=== PATIENT | female | born 1950 | race Caucasian/White ===

== ENCOUNTER 2017-01-20 11:07 | Outpatient (CLI) ==
[2014-08-09 19:46] VITALS: BMI 30.8
--- NOTE | 2017-01-20 12:05 | MAMMO ---
EXAM: Bilateral digital screening mammogram History: Screening Comparison: Bilateral mammogram 08/01/2015 Findings: MLO and CC views of bilateral breasts demonstrate scattered fibroglandular breast parench yma. Focal asymmetry within the left subareolar breast only seen on the MLO view. No suspicious cyrus rocalcifications. Impression: Indeterminate left breast asymmetry seen only on the MLO view. Recommend further evalu ation with spot compression views, ML view and possible ultrasound. BIRADS 0
== END 2017-01-20 11:08 | disposition home or self-care (01) ==
LOC: RAD 11:07
PROVIDERS: ATTEND Internal Medicine
DX: Z12.31 Encounter for screening mammogram for malignant neoplasm of breast (principal)

== ENCOUNTER 2017-01-25 08:57 | Outpatient (CLI) ==
[2014-08-09 19:46] VITALS: BMI 30.8
--- NOTE | 2017-01-25 09:59 | MAMMO ---
EXAM: Left digital diagnostic mammogram History: Left breast asymmetry. Comparison: Bilateral mammogram 01/20/2017 Findings: Left breast density is scattered. Additional spot compression views of the left breast i n the MLO and CC projections demonstrate normal superimposed breast parenchyma. There are no suspic ious masses and no abnormal microcalcifications. Impression: Benign left mammogram. Recommend return to routine screening mammography schedule. BIRADS 2
== END 2017-01-25 08:58 | disposition home or self-care (01) ==
LOC: RAD 08:57
PROVIDERS: ATTEND Internal Medicine
DX: R92.8 Other abnormal and inconclusive findings on diagnostic imaging of breast (principal)

== ENCOUNTER 2017-11-15 06:50 | Day surgery (SDC) ==
[2014-08-09 19:46] VITALS: BMI 30.8
[2017-11-15] MEDS ORDERED: LIDOCAINE 1% 20 ML MDV ID STA (07:33)
[2017-11-15] MEDS ORDERED: DIPRIVAN 20 ML VIAL IVP ONE (08:35)
[2017-11-15] MEDS ORDERED: VERSED ONE (08:35)
[2017-11-15 14:40] VITALS: BP 121/56; TEMP 98.6
--- NOTE | 2017-11-16 09:04 | OP ---
PROCEDURE: COLONOSCOPY TO THE CECUM WITH SNARE POLYPECTOMY. ENDOSCOPIST: Newton ROSE M.D. INDICATION: HISTORY OF POLYPS INSTRUMENT: PCHandseeing Information-[id number]. MEDICATION: PER ANESTHESIA. PROCEDURE: The patient was positioned for colonoscopy. The digital rectal exam was negative. The colonoscope was inserted through the anus and advanced to the cecum. The cecum was identified using the ileocecal valve and the appendiceal orifice as landmarks. The scope was slowly withdrawn through an adequately prepped colon. Small polyp in the cecum removed using snare cautery. A small polyp in the ascending colon removed snare cautery. Small polyp at hepatic flexure removed using snare cautery. Scattered diverticuli noted in the left colon. The retroflex exam was notable for hemorrhoids. No other abnormalities were seen. She tolerated the procedure without immediate complication. Withdraw time was 11 minutes and 50 seconds. PLAN: 1. Suggest repeat colonoscopy for surveillance in three years CC: Dr. Sherif WATTS
== END 2017-11-15 09:45 | disposition home or self-care (01) ==
LOC: SURG 06:50
PROVIDERS: ATTEND Internal Medicine Gastroenterology
DX: Z09 Encounter for follow-up examination after completed treatment for conditions other than malignant neoplasm (principal); Z86.010 Personal history of colon polyps; D12.2 Benign neoplasm of ascending colon; K63.5 Polyp of colon; K57.30 Diverticulosis of large intestine without perforation or abscess without bleeding; K64.9 Unspecified hemorrhoids

== ENCOUNTER 2018-01-27 08:50 | Outpatient (CLI) ==
[2014-08-09 19:46] VITALS: BMI 30.8
--- NOTE | 2018-01-28 09:28 | MAMMO ---
EXAM: Bilateral digital screening mammogram (2-D and 3-D) History: Screening Comparison: Bilateral mammogram 01/20/2017 Findings: MLO and CC views of bilateral breasts demonstrate scattered fibroglandular breast parenchy ma. CAD was reviewed by the radiologist. Tomosynthesis was performed. There are no dominant masses , no suspicious microcalcifications and no architectural distortions Impression: Stable negative mammogram. Recommend followup routine screening mammography in 1 year. BIRADS 1
== END 2018-01-27 08:51 | disposition home or self-care (01) ==
LOC: RAD 08:50
PROVIDERS: ATTEND Internal Medicine
DX: Z12.31 Encounter for screening mammogram for malignant neoplasm of breast (principal)
CPT/HCPCS: 77067

== ENCOUNTER 2019-02-28 10:43 | Outpatient (CLI) ==
[2014-08-09 19:46] VITALS: BMI 30.8
--- NOTE | 2019-03-01 09:32 | MAMMO ---
EXAM: Digital screening mammogram with Tomosynthesis HISTORY: Screening COMPARISON: 01/27/2018 FINDINGS: Digital MLO and CC views of the right and left breast were performed. Tomosynthesis was performed. Computer aided detection utilized. There are scattered fibroglandular densities. There i s no evidence for mass, asymmetry, distortion, or suspicious calcifications in either breast. IMPRESSION: 1. No evidence of malignancy in the right or left breast. 2. Annual screening mammogram is recommended in one year. BIRADS category 1, negative examination
== END 2019-02-28 10:44 | disposition home or self-care (01) ==
LOC: RAD 10:43
PROVIDERS: ATTEND Internal Medicine
DX: Z12.31 Encounter for screening mammogram for malignant neoplasm of breast (principal)

== ENCOUNTER 2021-01-29 12:07 | Inpatient (IN) ==
[2021-01-29] MEDS ORDERED: SODIUM CHLORIDE 1,000 ML IV STA (12:15)
[2021-01-29] MEDS ORDERED: ZOFRAN 4 MG/2 ML IVP ONE (12:15)
--- NOTE | 2021-01-29 12:15 | ED.PDOC ---
General ED Provider: Dr. SHAI WILLIS Chief Complaint: Syncope Stated Complaint: Passed out in outpatient area. Time Seen by Provider: 01/29/21 12:14 Mode of Arrival: Wheelchair Information Source: Patient and EMT Exam Limitations: No limitations Primary Care Provider: KIT GORMAN Nursing and Triage Documentation Reviewed and Agree: Yes Does patient meet sepsis criteria?: No System Inflammatory Response Syndrome: Not Applicable Sepsis Protocol: For patient's 13 years and over: Temp is 96.8 and below OR 101 and greater Pulse >90 BPM Resp >20/minute Acutely Altered Mental Status Are patient's symptoms suggestive of a new infection, such as: -Pneumonia -Skin, Soft Tissue -Endocarditis -UTI -Bone, Joint Infection -Implantable Device -Acute Abdominal Infection -Wound Infection -Meningitis -Blood Stream Catheter Infection -Unknown Cardiovascular Complaint Exam Palpitations Complaint/Exam Onset/Duration: 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 Symptoms Are: Still present Timing: Constant Initial Severity: Severe Current Severity: Severe Character: Reports Irregular Aggravating: Reports None Alleviating: Reports None Associated Signs and Symptoms: Reports Lightheadedness, Syncope, Diaphoresis, Nausea and Vomiting Related History: Similar episode (By hx, may have PAF.) Related Surgical History: Reports None Cardiac Risk Factors: Reports Hypertension and Diabetes Pulmonary Embolism Risk Factors: Reports None Atrial Fibrillation Risk Factors: Reports Hypertension Thyroid Exam: Normal Differential Diagnoses: AV Block, Paroxysmal SVT and Other (A-fib) Review of Systems Review Of Systems Constitutional: Reports Malaise and Weakness Eyes: Reports No symptoms Ears, Nose, Mouth, Throat: Reports No symptoms Respiratory: Reports No symptoms Cardiac: Reports Irregular heart rate and Syncope GI: Reports No symptoms : Reports No symptoms Musculoskeletal: Reports No symptoms Skin: Reports No symptoms Neurological: Reports No symptoms Endocrine: Reports No symptoms Hematologic/Lymphatic: Reports No symptoms All Other Systems: Reviewed and Negative [facility] Medical History (Updated 01/29/21 @ 17:27 by RALF GRIFFITH RN) Atrial fibrillation Cataract Diabetes mellitus Hypertension Family History (Updated 01/29/21 @ 17:25 by RALF GRIFFITH RN) Mother Ovarian cancer FATHER Cerebrovascular accident Diabetes Respiratory disease SISTER Diabetes Atrial fibrillation Kidney disease BROTHER Diabetes Social History Smoking and tobacco status: Never smoker History of recent travel: No Female Reproductive History Menstrual Hx Hysterectomy: Yes Hx Tubal Ligation: No Physical Exam Physical Exam Appearance: Reports Ill-appearing Ill-appearing: Moderate Pain Distress: Mild Eyes: Reports RAFFI ENT: Reports Oropharynx normal Neck: Supple Respiratory: Reports Airway patent and Breath sounds clear Cardiovascular: Reports Pulses normal, No rub, No murmur and Irregular rhythm GI/: Reports Soft and Nontender Musculoskeletal: Reports Normal strength Skin: Reports Warm and Dry Neurological: Reports Sensation intact, Motor intact and Alert Psychiatric: Reports Affect appropriate and Mood appropriate Interpretation Radiology Interpretation Radiology Interpretation By: Radiologist Radiology Results: No acute changes Exam Interpreted: Portable CXR EKG Interpretation Time of EKG #1: 12:07 Rate: Normal Rhythm: Other (a-fib) Ectopy: None ST Segment: Normal Interpretation: NSSTW change Time of EKG #2: 14:29 Rate: Normal Rhythm: Other (A-fib) Ectopy: None ST Segment: Normal EKG Interpretation: A-fib Physician Notification Case Discussed Physician Notified: Dr. Gorman Time of Notification: 14:00 Comments: Admit to tele. Critical Care Note Critical Care Note Total Critical Care Time (mins): 30 Course Course Hematology/Chemistry: 01/29/21 12:26 01/29/21 12:26 Orders, Labs, Meds: Lab Review 01/29/21 01/29/21 01/29/21 12:24 12:25 12:26 WBC 9.60 RBC 4.47 Hgb 14.0 Hct 40.5 MCV 90.6 MCH 31.3 H MCHC 34.6 RDW Coeff of Catarina 12.2 Plt Count 253 Immature Gran % (Auto) 0.3 Neut % (Auto) 48.8 Lymph % (Auto) 37.1 [place]atte % (Auto) 12.0 H Eos % (Auto) 1.4 Baso % (Auto) 0.4 Neut # (Auto) 4.7 Lymph # (Auto) 3.6 H [place]atte # (Auto) 1.2 Eos # (Auto) 0.1 Baso # (Auto) 0.0 Immature Gran # (Auto) 0.0 PT INR APTT Puncture Site L rad Base Excess -5.3 L O2 Saturation 98.2 H ABG pH 7.50 H ABG pCO2 23.0 L ABG pO2 98.0 ABG HCO3 17.9 L ABG Total CO2 18.6 L Freddie Test Y Hemoglobin 0.6 Oxyhemoglobin 95.9 Carboxyhemoglobin 0.5 Total Hemoglobin 13.7 FiO2 % 21.0 Sodium Potassium Chloride Carbon Dioxide Anion Gap BUN Creatinine Estimated GFR (MDRD) BUN/Creatinine Ratio Glucose Calcium Total Bilirubin AST ALT Alkaline Phosphatase Troponin I NT-Pro-B Natriuret Pep Total Protein Albumin Globulin Albumin/Globulin Ratio D-Dimer Adenovirus (PCR) Not detected B. pertussis DNA (PCR) Not detected B.parapertussis DNA PCR Not detected C. pneumoniae DNA (PCR) Not detected Coronavirus OC43 (PCR) Not detected Coronavirus HKU1 (PCR) Not detected Coronavirus 229E (PCR) Not detected Coronavirus NL63 (PCR) Not detected Human Metapneumovir PCR Not detected Influenza Type A (PCR) Not detected Influenza B (RT-PCR) Not detected M. pneumoniae (PCR) Not detected Parainfluenza 1 (PCR) Not detected Parainfluenza 2 (PCR) Not detected Parainfluenza 3 (PCR) Not detected Parainfluenza 4 (PCR) Not detected RSV (PCR) Not detected Entero/Rhino (PCR) Not detected SARS-CoV-2 (PCR) Not detected 01/29/21 01/29/21 01/29/21 12:26 12:26 12:26 WBC RBC Hgb Hct MCV MCH MCHC RDW Coeff of Catarina Plt Count Immature Gran % (Auto) Neut % (Auto) Lymph % (Auto) [place] % (Auto) Eos % (Auto) Baso % (Auto) Neut # (Auto) Lymph # (Auto) [place]atte # (Auto) Eos # (Auto) Baso # (Auto) Immature Gran # (Auto) PT 11.1 H INR 1.05 APTT 22.5 L Puncture Site Base Excess O2 Saturation ABG pH ABG pCO2 ABG pO2 ABG HCO3 ABG Total CO2 Freddie Test Hemoglobin Oxyhemoglobin Carboxyhemoglobin Total Hemoglobin FiO2 % Sodium 140.2 Potassium 3.93 Chloride 107.3 H Carbon Dioxide 20.1 L Anion Gap 16.73 BUN 14.2 Creatinine 0.82 Estimated GFR (MDRD) 69.00 BUN/Creatinine Ratio 17.31 Glucose 152.9 H Calcium 9.68 Total Bilirubin 1.23 AST 35.8 ALT 32.4 Alkaline Phosphatase 81.7 Troponin I < 0.012 NT-Pro-B Natriuret Pep Total Protein 7.10 Albumin 4.46 Globulin 2.64 Albumin/Globulin Ratio 1.68 D-Dimer 400.74 Adenovirus (PCR) B. pertussis DNA (PCR) B.parapertussis DNA PCR C. pneumoniae DNA (PCR) Coronavirus OC43 (PCR) Coronavirus HKU1 (PCR) Coronavirus 229E (PCR) Coronavirus NL63 (PCR) Human Metapneumovir PCR Influenza Type A (PCR) Influenza B (RT-PCR) M. pneumoniae (PCR) Parainfluenza 1 (PCR) Parainfluenza 2 (PCR) Parainfluenza 3 (PCR) Parainfluenza 4 (PCR) RSV (PCR) Entero/Rhino (PCR) SARS-CoV-2 (PCR) 01/29/21 12:26 WBC RBC Hgb Hct MCV MCH MCHC RDW Coeff of Catarina Plt Count Immature Gran % (Auto) Neut % (Auto) Lymph % (Auto) [place] % (Auto) Eos % (Auto) Baso % (Auto) Neut # (Auto) Lymph # (Auto) [place] # (Auto) Eos # (Auto) Baso # (Auto) Immature Gran # (Auto) PT INR APTT Puncture Site Base Excess O2 Saturation ABG pH ABG pCO2 ABG pO2 ABG HCO3 ABG Total CO2 Freddie Test Hemoglobin Oxyhemoglobin Carboxyhemoglobin Total Hemoglobin FiO2 % Sodium Potassium Chloride Carbon Dioxide Anion Gap BUN Creatinine Estimated GFR (MDRD) BUN/Creatinine Ratio Glucose Calcium Total Bilirubin AST ALT Alkaline Phosphatase Troponin I NT-Pro-B Natriuret Pep 1230.000 H Total Protein Albumin Globulin Albumin/Globulin Ratio D-Dimer Adenovirus (PCR) B. pertussis DNA (PCR) B.parapertussis DNA PCR C. pneumoniae DNA (PCR) Coronavirus OC43 (PCR) Coronavirus HKU1 (PCR) Coronavirus 229E (PCR) Coronavirus NL63 (PCR) Human Metapneumovir PCR Influenza Type A (PCR) Influenza B (RT-PCR) M. pneumoniae (PCR) Parainfluenza 1 (PCR) Parainfluenza 2 (PCR) Parainfluenza 3 (PCR) Parainfluenza 4 (PCR) RSV (PCR) Entero/Rhino (PCR) SARS-CoV-2 (PCR) Orders Category Date Time Status ADMIT PATIENT INPATIENT .TO [facility] (MONITORED BED) ADMISSION 01/29/21 14:10 Active ABG DRAW REQUEST Stat CARDIO 01/29/21 12:22 Completed EKG-(ED ONLY) Stat CARDIO 01/29/21 12:15 Completed EKG-(ED ONLY) Stat CARDIO 01/29/21 13:33 Completed TELEMETRY MONITORING TELE CARE 01/29/21 14:10 Active ABG COOX Stat LAB 01/29/21 12:25 Completed CBC W/ AUTO DIFF Stat LAB 01/29/21 12:26 Completed COMPREHENSIVE METABOLIC PANEL Stat LAB 01/29/21 12:26 Completed D-DIMER Stat LAB 01/29/21 12:26 Completed NT-PROBNP Stat LAB 01/29/21 12:26 Completed PARTIAL THROMBOPLASTIN TIME Stat LAB 01/29/21 12:26 Completed PT WITH INR Stat LAB 01/29/21 12:26 Completed RESPIRATORY PANEL 2.1 (PCR) Stat LAB 01/29/21 12:24 Completed TROPONIN I Stat LAB 01/29/21 12:26 Completed Enoxaparin Sodium [Lovenox] MEDS 01/29/21 15:00 Discontinued 80 mg SUBCUT ONCE ONE Ondansetron HCl/Pf [Zofran 4 mg/2 ml] MEDS 01/29/21 12:15 Discontinued 4 mg IVP ONCE ONE Sodium Chloride 0.9% [Sodium Chloride] 1,000 ml MEDS 01/29/21 12:15 Discontinued IV BOLUS CHEST, 1V AP ONLY Stat RADS 01/29/21 12:15 Completed Medications Generic Name Dose Route Start Last Admin Trade Name Freq PRN Reason Stop Dose Admin Acetaminophen 650 mg 01/29/21 15:05 Acetaminophen 325 Mg Tablet PO Q4H PRN Headache Aspirin 81 mg 01/30/21 08:30 Aspirin 81 Mg Tablet.Dr PO DAILYWM BARTOLO Atropine Sulfate 0.5 mg 01/29/21 15:05 Atropine Sulfate Inj 1 Mg/10 Ml Disp.Syrin IVP ONCE PRN Symptomatic Bradycardia Buspirone HCl 15 mg 01/29/21 21:00 01/29/21 20:13 Buspirone Hcl 10 Mg Tablet PO 15 mg BID BARTOLO Administration Fluconazole 100 mg 02/01/21 09:00 Fluconazole 100 Mg Tablet PO DAILY BARTOLO Metformin HCl 1,000 mg 01/29/21 17:00 01/29/21 16:28 Metformin Hcl 500 Mg Tablet PO 1,000 mg BIDWM BARTOLO Administration Nitroglycerin 0.4 mg 01/29/21 15:05 Nitroglycerin 0.4 Mg Tab.Subl SL Q5MIN X 3 DOSES PRN Chest Pain Omeprazole 20 mg 01/29/21 17:00 01/29/21 16:28 Omeprazole 20 Mg Capsule.Dr PO 20 mg 1700 BARTOLO Administration Potassium Chloride 20 meq 01/29/21 17:00 01/29/21 16:29 Potassium Chloride 20 Meq Tab PO 20 meq BIDWM BARTOLO Administration Pravastatin Sodium 20 mg 01/30/21 09:00 Pravastatin Sodium 20 Mg Tablet PO DAILY BARTOLO Sertraline HCl 50 mg 01/30/21 09:00 Sertraline Hcl 50 Mg Tablet PO DAILY BARTOLO Sodium Chloride 1 syr 01/29/21 21:00 01/29/21 20:17 0.9% Sodium Chloride 10 Ml Disp.Syrin IVF 1 syr Q8HR BARTOLO Administration Discontinued Medications Generic Name Dose Route Start Last Admin Trade Name Freq PRN Reason Stop Dose Admin Enoxaparin Sodium 80 mg 01/29/21 15:00 01/29/21 14:46 Enoxaparin Sodium 100 Mg/Ml Syr SUBCUT 01/29/21 15:01 80 mg ONCE ONE Administration Sodium Chloride 1,000 mls @ 1,000 mls/hr 01/29/21 12:15 01/29/21 12:24 Sodium Chloride IV 01/29/21 13:14 1,000 mls/hr BOLUS STA Administration Ondansetron HCl 4 mg 01/29/21 12:15 01/29/21 12:24 Ondansetron Hcl/Pf 4 Mg/2 Ml Sdv IVP 01/29/21 12:16 4 mg ONCE ONE Administration Vital Signs: Temp Pulse Resp BP Pulse Ox 01/29/21 12:08 96.3 F L 77 16 87/45 L 98 SUSAN Risk Score SUSAN Risk Score: Risk Score Odds of by 30D 0 0.1 (0.1-0.2) 1 0.3 (0.2-0.3) 2 0.4 (0.3-0.5) 3 0.7 (0.6-0.9) 4 1.2 (1.0-1.5) 5 2.2 (1.9-2.6) 6 3.0 (2.5-3.6) 7 4.8 (3.8-6.1) Discharge Plan Discharge Patient Disposition: ADMITTED INPATIENT Discharge Problem: Atrial fibrillation Qualifiers: Atrial fibrillation type: paroxysmal Qualified Code(s): I48.0 - Paroxysmal atrial fibrillation ED Provider: SHAI WILLIS Condition: Stable Physician Progress Note: [Syncope with hypotension, she had just been in bathroom for BM. Better with IVF. New onset A-fib with controlled rate. Trop neg (first one). Admit per Dr. Gorman]
[2021-01-29 12:30] LABS: ABG O2 HGB 95.9 % (95-100); BEecf -5.3 (-2.0-3.0); COHb 0.5 (0.5-1.5); HCO3 17.9 (21-28); MetHb 0.6 (0-1.5); TCO2 18.6 (19-24); sO2 98.2 % (94-98); tHb 13.7 g/dl (11.7-17.4)
[2021-01-29 12:33] LABS: BORDETELLA PARAPERTUSSIS (PCR) NOT DETECTED (NOT DETECT); BORDETELLA PERTUSSIS (PCR) NOT DETECTED (NOT DETECT); CHLAMYDIA PNEUMONIAE (PCR) NOT DETECTED (NOT DETECT); CORONAVIRUS 229E (PCR) NOT DETECTED (NOT DETECT); CORONAVIRUS HKU1 (PCR) NOT DETECTED (NOT DETECT); CORONAVIRUS NL63 (PCR) NOT DETECTED (NOT DETECT); CORONAVIRUS OC43 (PCR) NOT DETECTED (NOT DETECT); HUMAN METAPNEUMOVIRUS (PCR) NOT DETECTED (NOT DETECT); HUMAN RHINOVIRUS/ENTEROV (PCR) NOT DETECTED (NOT DETECT); INFLUENZA B (PCR) NOT DETECTED (NOT DETECT); MYCOPLASMA PNEUMONIAE (PCR) NOT DETECTED (NOT DETECT); PARAINFLUENZA VIRUS 1 (PCR) NOT DETECTED (NOT DETECT); PARAINFLUENZA VIRUS 2 (PCR) NOT DETECTED (NOT DETECT); PARAINFLUENZA VIRUS 3 (PCR) NOT DETECTED (NOT DETECT); PARAINFLUENZA VIRUS 4 (PCR) NOT DETECTED (NOT DETECT); RESPIRATORY SYNCYTIAL V (PCR) NOT DETECTED (NOT DETECT); SARS_COV_2 (PCR) NOT DETECTED (NOT DETECT)
[2021-01-29 12:33] LABS: BASOPHILS % (AUTO) 0.4 % (0.0-3.0); EOSINOPHILS # (AUTO) 0.1 K/ul (0.0-0.7); EOSINOPHILS % (AUTO) 1.4 % (0.0-7.0); HEMATOCRIT 40.5 % (37.0-47.0); IMMATURE GRANULOCYTE % (AUTO) 0.3 % (0.0-5.0); LYMPHOCYTES # (AUTO) 3.6 K/uL (0.60-3.4); LYMPHOCYTES % (AUTO) 37.1 (10.0-50.0); MEAN CORPUSCULAR HEMOGLOBIN 31.3 pg (27.0-31.0); MEAN CORPUSCULAR HGB CONC 34.6 (31.8-35.4); MEAN CORPUSCULAR VOLUME 90.6 fl (81.0-99.0); MONOCYTES # (AUTO) 1.2 K/uL (0.4-2.0); NEUTROPHILS # (AUTO) 4.7 K/ul (2.0-6.9); NEUTROPHILS % (AUTO) 48.8 % (42.2-75.2); PLATELET COUNT 253 10^3/uL (140-440); RDW COEFFICIENT OF VARIATION 12.2 % (11.6-14.8); RED BLOOD COUNT 4.47 10^6/ul (4.20-5.40)
[2021-01-29 12:43] LABS: ALANINE AMINOTRANSFERASE 32.4 U/L (0-35); ALBUMIN 4.46 g/dL (3.5-5.0); ALKALINE PHOSPHATASE 81.7 U/L (53-141); ASPARTATE AMINO TRANSFERASE 35.8 U/L (14-36); BILIRUBIN,TOTAL 1.23 mg/dL (0.2-1.3); BLOOD UREA NITROGEN 14.2 mg/dL (7-17); CALCIUM 9.68 mg/dL (8.4-10.2); CARBON DIOXIDE 20.1 mmol/L (22-30.0); CHLORIDE 107.3 mmol/L (98-107); CREATININE 0.82 mg/dL (0.60-1.30); GLUCOSE 152.9 mg/dL (74-106); POTASSIUM 3.93 mmol/L (3.5-5.1); SODIUM 140.2 mmol/L (134.5-145)
[2021-01-29 12:56] LABS: PARTIAL THROMBOPLASTIN TIME 22.5 SEC (23.9-40.0); PROTHROMBIN TIME 11.1 SEC (9.3-11.0); TROPONIN I < 0.012 ng/ml (0.0000-0.120)
--- NOTE | 2021-01-29 13:06 | DI ---
EXAM: Frontal view of the chest. HISTORY: Dyspnea. COMPARISON: Chest radiograph 09/30/2020 FINDINGS: Calcified atherosclerosis of the aorta. Normal heart size. No acute consolidation. No visible pleural effusion or pneumothorax. No acute osseous abnormality. IMPRESSION: No acute abnormality in the chest. Calcific atherosclerosis.
[2021-01-29 13:23] LABS: ADENOVIRUS (PCR) NOT DETECTED (NOT DETECT)
[2021-01-29] MEDS ORDERED: LOVENOX SUBCUT ONE ×2 (14:09→15:00)
[2021-01-29] MEDS ORDERED: TYLENOL PO PRN (15:05)
[2021-01-29] MEDS ORDERED: NITROSTAT SL PRN (15:05)
[2021-01-29] MEDS ORDERED: ATROPINE SULFATE PFS IVP PRN (15:05)
[2021-01-29 15:59] LABS: BILIRUBIN,URINE Negative (NEGATIVE); CLARITY,URINE Slightly (CLEAR); COLOR,URINE Yellow (YELLOW); GLUCOSE, URINE (UA) 2+ (NEGATIVE); KETONES,URINE Negative (NEGATIVE); LEUKOCYTE ESTERASE ,URINE Trace (NEGATIVE); NITRITE,URINE Negative (NEGATIVE); PH,URINE 5.5 (5-9); PROTEIN,URINE Negative (NEGATIVE); URINE, BLOOD Negative (NEGATIVE); UROBILINOGEN,URINE 0.2 (0.2)
[2021-01-29 16:10] LABS: RENAL EPITHELIAL CELLS,URINE 0-2 (NOT PRESENT); URINE WBC, MICROSCOPIC 0-2 (0-2)
[2021-01-29 16:11] LABS: BACTERIA,URINE TRACE (NOT PRESENT); HYALINE CASTS, URINE 0-2 (NOT PRESENT); MUCUS,URINE TRACE (NOT PRESENT)
[2021-01-29 16:21] VITALS: BMI 28.8
[2021-01-29] MEDS: PRILOSEC PO SCH (16:28)
[2021-01-29] MEDS: GLUCOPHAGE PO SCH (16:28)
[2021-01-29] MEDS: K-DUR PO SCH (16:29)
[2021-01-29] MEDS: BUSPAR PO SCH (20:13)
[2021-01-29] MEDS ORDERED: NON-FORMULARY MEDICATION (Omeprazole Magnesium [Prilosec Otc] 20 MG tablet,delayed release PO SCH (21:00)
[2021-01-30 07:57] LABS: BASOPHILS % (AUTO) 0.6 % (0.0-3.0); EOSINOPHILS # (AUTO) 0.2 K/ul (0.0-0.7); HEMATOCRIT 37.8 % (37.0-47.0); IMMATURE GRANULOCYTE % (AUTO) 0.2 % (0.0-5.0); LYMPHOCYTES # (AUTO) 2.3 K/uL (0.60-3.4); LYMPHOCYTES % (AUTO) 36.5 (10.0-50.0); MEAN CORPUSCULAR HEMOGLOBIN 31.6 pg (27.0-31.0); MEAN CORPUSCULAR HGB CONC 34.4 (31.8-35.4); MONOCYTES # (AUTO) 0.6 K/uL (0.4-2.0); MONOCYTES % (AUTO) 9.6 (0-10); NEUTROPHILS # (AUTO) 3.1 K/ul (2.0-6.9); NEUTROPHILS % (AUTO) 50.1 % (42.2-75.2); PLATELET COUNT 192 10^3/uL (140-440); RDW COEFFICIENT OF VARIATION 12.4 % (11.6-14.8); RED BLOOD COUNT 4.11 10^6/ul (4.20-5.40); WHITE BLOOD COUNT 6.24 K/ul (4.6-10.2)
[2021-01-30 08:01] LABS: ALANINE AMINOTRANSFERASE 28.3 U/L (0-35); ALBUMIN 4.11 g/dL (3.5-5.0); ALKALINE PHOSPHATASE 79.2 U/L (53-141); ASPARTATE AMINO TRANSFERASE 34.5 U/L (14-36); BILIRUBIN,TOTAL 0.97 mg/dL (0.2-1.3); BLOOD UREA NITROGEN 12.6 mg/dL (7-17); CALCIUM 9.28 mg/dL (8.4-10.2); CARBON DIOXIDE 27.1 mmol/L (22-30.0); CHLORIDE 105.5 mmol/L (98-107); CREATININE 0.64 mg/dL (0.60-1.30); GLUCOSE 127.8 mg/dL (74-106); POTASSIUM 3.8 mmol/L (3.5-5.1); SODIUM 137.7 mmol/L (134.5-145); TOTAL PROTEIN 6.62 g/dL (6.3-8.2)
[2021-01-30] MEDS ORDERED: ASPIRIN EC PO SCH (08:30)
[2021-01-30] MEDS ORDERED: JARDIANCE PO SCH (09:00)
[2021-01-30] MEDS: BUSPAR PO SCH ×2 (09:20→21:09)
[2021-01-30] MEDS: GLUCOPHAGE PO SCH ×2 (09:20→17:43)
[2021-01-30] MEDS: PRAVACHOL PO SCH (09:21)
[2021-01-30] MEDS: K-DUR PO SCH ×2 (09:21→17:43)
[2021-01-30] MEDS: ZOLOFT PO SCH (09:21)
[2021-01-30] MEDS: ELIQUIS PO SCH ×2 (10:07→21:10)
[2021-01-30] MEDS: BENTYL PO SCH ×2 (10:07→21:10)
--- NOTE | 2021-01-30 10:17 | PCM.PROG ---
Attending Provider: ATTENDING PROVIDER: Dr. KIT PATRICK This patient is seen with Kaylee Abernathy, Nurse Practitioner. DATE OF SERVICE: 01/30/21 SUBJECTIVE: This 70 year old /WHITE F was hospitalized 01/29/21. The patient is resting comfortably. She had multiple bowel movements through the night. Denies any dizziness through night. Normal sinus rhythm this morning. Blood pressure is normal without any medications, we will continue to hold. REVIEW OF SYSTEMS: CONSTITUTIONAL: No night sweats. No fatigue, malaise, lethargy. No fever or chills. Weakness. HEENT: Eyes: No visual changes. No eye pain. No eye discharge. ENT: No runny nose. No epistaxis. No sinus pain. No odynophagia. No congestion. RESPIRATORY: No cough, no congestion. No hemoptysis. No shortness of breath. CARDIOVASCULAR: No angina symptoms. No CHF symptoms. No atypical chest pain for CAD. No palpitations. No orthopnea.. GASTROINTESTINAL: No abdominal pain. No nausea or vomiting. No diarrhea or constipation. No hematemesis. No hematochezia. GENITOURINARY: No urgency. No frequency. No dysuria. No hematuria. No obstructive symptoms. No discharge. No pain. No significant abnormal bleeding. MUSCULOSKELETAL: No musculoskeletal pain; no joint swelling. NEUROLOGICAL: Awake, alert, oriented to time, place and person. No headache. No neck pain. No syncope. No seizures. No dizziness. PSYCHIATRIC: Not anxious. No depression. No suicidal thoughts. No homicidal thoughts. SKIN: No rash. No lesions. No wounds. ENDOCRINE: No unexplained weight loss. No weight gain. HEMATOLOGIC/LYMPHATIC: No anemia. No purpura. No petechiae. No prolonged or excessive bleeding. No palpable lymph nodes. PHYSICAL EXAMINATION: GENERAL: The patient is awake, alert and oriented, lying in bed in no distress. VITAL SIGNS: Temperature 98.4 F, Pulse 64, Respiratory Rate 16, BP 119/63, Pul se Ox 98% HEENT: Head normocephalic, atraumatic. Eyes: Extraocular muscles are intact. Pupils are equal, round and reactive to light and accommodation. Ears: No lesions. Nose appeared normal. Throat: No exudate or erythema. NECK: Supple. No JVD, no carotid bruit. No lymphadenopathy or thyromegaly. LUNGS: Diminished breath sounds. Clear to auscultation. Percussion note normal. Chest symmetrical. HEART: S1, S2, no S3. No murmurs. Irregular heart rate. No cyanosis or clubbing. No ascites. Pulses: Dorsalis pedis and posterior tibial pulses +1 to +2 both sides. ABDOMEN: Soft. Non-tender. Bowel sounds active. No CVA tenderness. No mass felt. EXTREMITIES: No edema. Full range of motion of all extremities, equal. NEUROLOGIC: No focal deficit. Cranial nerves II through XII are grossly intact. No headache. No double vision. SKIN: Not dry. Intact. Turgor-normal. LYMPHATIC: No palpable lymph nodes/no lymphedema. MUSCULOSKELETAL: Normal joints with no swelling. Muscle tone is normal. LAB REVIEW: 01/29/21 12:26 01/30/21 07:41 01/30/21 07:41: Sodium 137.7, Potassium 3.80, Chloride 105.5, Carbon Dioxide 27.1 D, Anion Gap 8.90, BUN 12.6, Creatinine 0.64, Estimated GFR (MDRD) 91.00, BUN/Creatinine Ratio 19.68, Glucose 127.8 H, Calcium 9.28, Total Bilirubin 0.97, AST 34.5, ALT 28.3, Alkaline Phosphatase 79.2, Total Protein 6.62, Albumin 4.11, Globulin 2.51, Albumin/Globulin Ratio 1.63 01/29/21 23:12: Troponin I < 0.012 01/29/21 15:46: Urine Color Yellow, Urine Clarity Slightly, Urine pH 5.5, Ur Specific [place] 1.015, Urine Protein Negative, Urine Glucose (UA) 2+ H, Urine Ketones Negative, Urine Blood Negative, Urine Nitrite Negative, Urine Bilirubin Negative, Urine Urobilinogen 0.2, Ur Leukocyte Esterase Trace H, Urine Microscopic WBC 0-2, Ur Squamous Epith Cells 2-5, Ur Renal Epithelial Cell 0-2, Urine Bacteria Trace, Hyaline Casts 0-2, Urine Mucus Trace 01/29/21 12:26: NT-Pro-B Natriuret Pep 1230.000 H 01/29/21 12:26: D-Dimer 400.74 01/29/21 12:26: Sodium 140.2, Potassium 3.93, Chloride 107.3 H, Carbon Dioxide 20.1 L, Anion Gap 16.73, BUN 14.2, Creatinine 0.82, Estimated GFR (MDRD) 69.00, BUN/Creatinine Ratio 17.31, Glucose 152.9 H, Calcium 9.68, Total Bilirubin 1.23, AST 35.8, ALT 32.4, Alkaline Phosphatase 81.7, Troponin I < 0.012, Total Protein 7.10, Albumin 4.46, Globulin 2.64, Albumin/Globulin Ratio 1.68 01/29/21 12:26: PT 11.1 H, INR 1.05, APTT 22.5 L 01/29/21 12:26: WBC 9.60, RBC 4.47, Hgb 14.0, Hct 40.5, MCV 90.6, MCH 31.3 H, MCHC 34.6, RDW Coeff of Catarina 12.2, Plt Count 253, Immature Gran % (Auto) 0.3, Neut % (Auto) 48.8, Lymph % (Auto) 37.1, [place]kinson % (Auto) 12.0 H, Eos % (Auto) 1.4, Baso % (Auto) 0.4, Neut # (Auto) 4.7, Lymph # (Auto) 3.6 H, Atkinson # (Auto) 1.2, Eos # (Auto) 0.1, Baso # (Auto) 0.0, Immature Gran # (Auto) 0.0 01/29/21 12:25: Puncture Site L rad, Base Excess -5.3 L, O2 Saturation 98.2 H, ABG pH 7.50 H, ABG pCO2 23.0 L, ABG pO2 98.0, ABG HCO3 17.9 L, ABG Total CO2 18.6 L, Freddie Test Y, Hemoglobin 0.6, Oxyhemoglobin 95.9, Carboxyhemoglobin 0.5, Total Hemoglobin 13.7, FiO2 % 21.0 01/29/21 12:24: Adenovirus (PCR) Not detected, B. pertussis DNA (PCR) Not detected, B.parapertussis DNA PCR Not detected, C. pneumoniae DNA (PCR) Not detected, Coronavirus OC43 (PCR) Not detected, Coronavirus HKU1 (PCR) Not d etected, Coronavirus 229E (PCR) Not detected, Coronavirus NL63 (PCR) Not detected, Human Metapneumovir PCR Not detected, Influenza Type A (PCR) Not detected, Influenza B (RT-PCR) Not detected, M. pneumoniae (PCR) Not detected, Parainfluenza 1 (PCR) Not detected, Parainfluenza 2 (PCR) Not detected, P arainfluenza 3 (PCR) Not detected, Parainfluenza 4 (PCR) Not detected, RSV (PCR) Not detected, Entero/Rhino (PCR) Not detected, SARS-CoV-2 (PCR) Not detected ASSESSMENT: Please see below. 1. New onset atrial fibrillation 2. Dizziness 3. Hypotension 4. Syncopal episode PLAN: 1. Continue to hold blood pressure medications 2. Monitor Telemetry 3. Discontinue Aspirin 4. Eliquis 5mg BID Plan and coordination of the patient's care discussed in the presence of Adult Education Teacher and nurse. SCRIBED BY: Libby TONEY scribed while in presence of service performed by Dr. Patrick/Kaylee Abernathy APRN on 01/30/21 ([id number])
--- NOTE | 2021-01-30 10:53 | PN ---
DATE OF SERVICE: 01/29/2021 ADMISSION NOTE SUBJECTIVE: The patient was with the who is doing cardiac rehab. The patient passed out and in the emergency room the patient was noted to have systolic blood pressure between 170-180. She was given a couple of liters of IV fluids and she was feeling better. She has been on Norvasc 10mg, Hyzaar 100-12.5 along with Toprolol. Also was in atrial fibrillation with rate of 70 per minute according to the ER physician. She had no symptoms of CHF. She is going to be hospitalized with Telemetry. Norvasc and all the anti-hypertensive medications going to be put on hold. She will be on telemetry. Lovenox will be given for her atrial fibrillation. She is going to be continued on IV fluids. We will watch for fluid overload. May need echocardiogram to evaluate LV function and LA size with valvular structures. CONDITION: Stable. TIME SPENT: More than 30 minutes. Plan and coordination of the patient's care discussed in the presence of nurse. MAC
--- NOTE | 2021-01-30 15:41 | US ---
EXAM: Carotid ultrasound HISTORY: Syncopal episode COMPARISON: None TECHNIQUE: Carotid ultrasound was performed using Duplex imaging with freire scale, color, and Doppler imaging performed. FINDINGS: Right carotid: There is atherosclerotic plaque in the common carotid and bulb/internal carotid arter y. Peak systolic velocity measurement in the right internal carotid artery is 0.86 meters per second . End-diastolic velocity measurement in the right internal carotid artery is 0.11 meters per second. Right internal to common carotid artery peak systolic velocity ratio is 1.0. Flow in the right elsa tebral artery is antegrade. Left carotid: There is atherosclerotic plaque in the common carotid and bulb/internal carotid artery . Peak systolic velocity measurement in the left internal carotid artery is 0.99 meters per second. End-diastolic velocity measurement in the left internal carotid artery is 0.22 meters per second. L eft internal to common carotid artery peak systolic velocity ratio measures 1.6. Flow in the left ve rtebral artery is antegrade. IMPRESSION: 1. Right internal carotid: Peak systolic velocity corresponds with mild (less than 50%) stenosis. 2. Left internal carotid: Peak systolic velocity corresponds with mild (less than 50%) stenosis
[2021-01-30] MEDS: PRILOSEC PO SCH (17:42)
[2021-01-31 05:25] LABS: BASOPHILS % (AUTO) 0.6 % (0.0-3.0); EOSINOPHILS # (AUTO) 0.1 K/ul (0.0-0.7); EOSINOPHILS % (AUTO) 1.9 % (0.0-7.0); HEMATOCRIT 37.5 % (37.0-47.0); HEMOGLOBIN 12.8 g/dl (12.0-16.0); IMMATURE GRANULOCYTE % (AUTO) 0.1 % (0.0-5.0); LYMPHOCYTES # (AUTO) 2.7 K/uL (0.60-3.4); LYMPHOCYTES % (AUTO) 39.9 (10.0-50.0); MEAN CORPUSCULAR HEMOGLOBIN 31.2 pg (27.0-31.0); MEAN CORPUSCULAR HGB CONC 34.1 (31.8-35.4); MEAN CORPUSCULAR VOLUME 91.5 fl (81.0-99.0); MONOCYTES # (AUTO) 0.6 K/uL (0.4-2.0); MONOCYTES % (AUTO) 9.2 (0-10); NEUTROPHILS # (AUTO) 3.2 K/ul (2.0-6.9); NEUTROPHILS % (AUTO) 48.3 % (42.2-75.2); PLATELET COUNT 172 10^3/uL (140-440); RDW COEFFICIENT OF VARIATION 12.1 % (11.6-14.8); WHITE BLOOD COUNT 6.71 K/ul (4.6-10.2)
[2021-01-31 06:07] LABS: ALANINE AMINOTRANSFERASE 25.7 U/L (0-35); ALBUMIN 3.96 g/dL (3.5-5.0); ALKALINE PHOSPHATASE 74.6 U/L (53-141); ASPARTATE AMINO TRANSFERASE 31.1 U/L (14-36); BILIRUBIN,TOTAL 0.79 mg/dL (0.2-1.3); BLOOD UREA NITROGEN 11.7 mg/dL (7-17); CALCIUM 9.36 mg/dL (8.4-10.2); CARBON DIOXIDE 25.5 mmol/L (22-30.0); CHLORIDE 106.2 mmol/L (98-107); CREATININE 0.57 mg/dL (0.60-1.30); GLUCOSE 96.9 mg/dL (74-106); POTASSIUM 3.95 mmol/L (3.5-5.1); SODIUM 140.3 mmol/L (134.5-145); TOTAL PROTEIN 6.47 g/dL (6.3-8.2)
--- NOTE | 2021-01-31 07:45 | HP ---
DATE OF SERVICE: 01/29/21 HISTORY OF PRESENT ILLNESS: This is a 70-year-old white female who was at the hospital with her and had a syncopal episode in the outpatient area. She had just went to the restroom, came out of the restroom and stated that she felt light-headed, sat down in the chair and subsequently passed out. No other injury noted. PAST MEDICAL HISTORY: Diabetes mellitus type 2 B12 deficiency Hypertension LVH with history of increased LA cavity Dyslipidemia Fatty liver GERD Depression IBS Metabolic syndrome PAST SURGICAL HISTORY: Bilateral cataract extraction She had a colonoscopy in November of 2017, repeat in [address] Bernard She had EKG, echo, chest x-ray and carotid ultrasound in September of 2020 REVIEW OF SYSTEMS: CONSTITUTIONAL: Positive for weakness. No night sweats. No fatigue, malaise, lethargy. No fever or chills. HEENT: Eyes: No visual changes. No eye pain. No eye discharge. ENT: No runny nose. No epistaxis. No sinus pain. No sore throat. No odynophagia. No ear pain. No congestion. RESPIRATORY: No cough, no congestion. No hemoptysis. No shortness of breath. CARDIOVASCULAR: No angina symptoms. No CHF symptoms. No atypical chest pain for CAD. No palpitations. No PND. No orthopnea. GASTROINTESTINAL: No abdominal pain. No nausea or vomiting. No diarrhea or constipation. No hematemesis. No hematochezia. GENITOURINARY: No urgency. No frequency. No dysuria. No hematuria. No obstructive symptoms. No discharge. No pain. No significant abnormal bleeding. MUSCULOSKELETAL: No musculoskeletal pain. No joint swelling. No arthritis. NEUROLOGICAL: Syncope. No headache. No neck pain. No seizures. No dizziness. PSYCHIATRIC: Not anxious. No depression. No suicidal thoughts. No homicidal thoughts. SKIN: No rash. No lesions. No wounds. ENDOCRINE: No unexplained weight loss. No weight gain. HEMATOLOGIC/LYMPHATIC: No anemia. No purpura. No petechiae. No prolonged or excessive bleeding. No palpable lymph nodes. PERSONAL/FAMILY/SOCIAL HISTORY: Nonsmoker. No alcohol or illicit drug use. She lives at home with her , performs all activities of daily living. MEDICATIONS: Buspirone 15 mg p.o. b.i.d. Sertraline 50 mg p.o. daily Potassium Chloride 20 mEq one tab p.o. b.i.d. Omeprazole 1 mg p.o. bedtime Metformin 1,000 mg p.o. b.i.d. with meal Aspirin 81 mg p.o. daily with meal Losartan-Hydrochlorothiazide one each p.o. daily Amlodipine 10 mg p.o. daily Metoprolol 50 mg p.o. daily Pravastatin 20 mg p.o. daily Metoprolol 25 mg p.o. bedtime Jardiance 25 mg p.o. daily ALLERGIES: NKDA PHYSICAL EXAMINATION: GENERAL: Alert, oriented. She is clammy. VITAL SIGNS: Temperature 96.3, heart rate 77, respirations 16, blood pressure 87/45, pulse ox 98%. HEENT: Head normocephalic, atraumatic. Eyes: Extraocular muscles are intact. Pupils are equal, round and reactive to light and accommodation. Ears: No lesions. Nose appeared normal. Throat: No exudate or erythema. NECK: Supple. No JVD, no carotid bruit. No lymphadenopathy or thyromegaly. LUNGS: Diminished breath sounds. Clear to auscultation. Percussion note normal. Chest symmetrical. HEART: Irregular heart rate. S1, S2, no S3. No murmur. No cyanosis or clubbing. No ascites. Pulses: Dorsalis pedis and posterior tibial pulses +1 to +2 bilaterally. ABDOMEN: Soft. Nontender. Bowel sounds active. No CVA tenderness. No mass felt. EXTREMITIES: No edema. Full range of motion of all extremities, equal. NEUROLOGIC: No focal deficit. Cranial nerves II through XII are grossly intact. No headache, no double vision or headache. SKIN: Not dry. Intact. Turgor - normal. LYMPHATIC: No palpable lymph nodes/no lymphedema. MUSCULOSKELETAL: Normal joints with no swelling. Muscle tone is normal. White count 9.6, hemoglobin 14, hematocrit 40.5, platelets 253. Sodium 140, potassium 3.9, BUN 14, creatinine 0.82, glucose 152. ABG on room air 02 sat 98, pH 7.5, pc02 23, p02 98, bicarb 17.9. Urine shows 2+ glucose, trace bacteria, trace leuk. Troponin less than 0.012. Pro-BNP 1230, INR 1.05. Respiratory panel by PCR is negative. Chest x-ray shows no acute abnormality. Calcific atherosclerosis. D. dimer is 400. EKG reveals atrial fibrillation with controlled rate. ASSESSMENT: 1. New onset atrial fibrillation. 2. Syncope with hypotension. 3. Diabetes mellitus type 2. PLAN: 1. We will admit. 2. Routine telemetry orders. 3. CBC, CMP daily. 4. Continuous telemetry monitoring. 5. Hold blood pressure medications. 6. Continue IV fluids, NS at 75 cc/hr. 7. UA. 8. D/C aspirin. 9. Will follow closely. TIME SPENT: More than 70 minutes. MTDD
--- NOTE | 2021-01-31 10:56 | PCM.PROG ---
Attending Provider: ATTENDING PROVIDER: Dr. KIT PATRICK DATE OF SERVICE: 01/31/21 SUBJECTIVE: This 70 year old /WHITE F was hospitalized 01/29/21 with hypotension and near syncopal episode. The patient also had atrial fibrillation with ventricular response average 50 beats per minute. Holter done a week ago also revealed same thing. She was taken off all hypertension medications. Systolic blood pressure running 110-130. Feeling fine. REVIEW OF SYSTEMS: CONSTITUTIONAL: No night sweats. No fatigue, malaise, lethargy. No fever or chills. HEENT: Eyes: No visual changes. No eye pain. No eye discharge. ENT: No runny nose. No epistaxis. No sinus pain. No odynophagia. No congestion. RESPIRATORY: No cough, no congestion. No hemoptysis. No shortness of breath. CARDIOVASCULAR: No angina symptoms. No CHF symptoms. No atypical chest pain for CAD. No palpitations. No orthopnea.. GASTROINTESTINAL: No abdominal pain. No nausea or vomiting. No diarrhea or constipation. No hematemesis. No hematochezia. GENITOURINARY: No urgency. No frequency. No dysuria. No hematuria. No obstructive symptoms. No discharge. No pain. No significant abnormal bleeding. MUSCULOSKELETAL: No musculoskeletal pain; no joint swelling. NEUROLOGICAL: Awake, alert, oriented to time, place and person. No headache. No neck pain. No syncope. No seizures. No dizziness. PSYCHIATRIC: Not anxious. No depression. No suicidal thoughts. No homicidal thoughts. SKIN: No rash. No lesions. No wounds. ENDOCRINE: No unexplained weight loss. No weight gain. HEMATOLOGIC/LYMPHATIC: No anemia. No purpura. No petechiae. No prolonged or excessive bleeding. No palpable lymph nodes. PHYSICAL EXAMINATION: GENERAL: The patient is awake, alert and oriented, lying in bed in no distress. VITAL SIGNS: Temperature 97.9 F, Pulse 59, Respiratory Rate 18, BP 125/75, Pulse Ox 98% HEENT: Head normocephalic, atraumatic. Eyes: Extraocular muscles are intact. Pupils are equal, round and reactive to light and accommodation. Ears: No lesions. Nose appeared normal. Throat: No exudate or erythema. NECK: Supple. No JVD, no carotid bruit. No lymphadenopathy or thyromegaly. LUNGS: Clear to auscultation. Percussion note normal. Chest symmetrical. HEART: S1, S2, no S3. No murmurs. No cyanosis or clubbing. No ascites. Pulses: Dorsalis pedis and posterior tibial pulses +1 to +2 both sides. ABDOMEN: Soft. Non-tender. Bowel sounds active. No CVA tenderness. No mass felt. EXTREMITIES: No edema. Full range of motion of all extremities, equal. NEUROLOGIC: No focal deficit. Cranial nerves II through XII are grossly intact. No headache, no double vision or headache. SKIN: Warm and dry. Intact. Turgor-normal. LYMPHATIC: No palpable lymph nodes/no lymphedema. MUSCULOSKELETAL: Normal joints with no swelling. Muscle tone is normal. LAB REVIEW: 01/31/21 04:53 01/31/21 04:53 01/31/21 04:53: Sodium 140.3, Potassium 3.95, Chloride 106.2, Carbon Dioxide 25. 5, Anion Gap 12.55, BUN 11.7, Creatinine 0.57 L, Estimated GFR (MDRD) 105.00, BUN/Creatinine Ratio 20.52, Glucose 96.9, Calcium 9.36, Total Bilirubin 0.79, AST 31.1, ALT 25.7, Alkaline Phosphatase 74.6, Total Protein 6.47, Albumin 3.96, Globulin 2.51, Albumin/Globulin Ratio 1.57 01/31/21 04:53: WBC 6.71, RBC 4.10 L, Hgb 12.8, Hct 37.5, MCV 91.5, MCH 31.2 H, MCHC 34.1, RDW Coeff of Catarina 12.1, Plt Count 172, Immature Gran % (Auto) 0.1, Neut % (Auto) 48.3, Lymph % (Auto) 39.9, Payette % (Auto) 9.2, Eos % (Auto) 1.9, Baso % (Auto) 0.6, Neut # (Auto) 3.2, Lymph # (Auto) 2.7, Payette # (Auto) 0.6, Eos # (Auto) 0.1, Baso # (Auto) 0.0, Immature Gran # (Auto) 0.0 01/30/21 07:41: WBC 6.24, RBC 4.11 L, Hgb 13.0, Hct 37.8, MCV 92.0, MCH 31.6 H, MCHC 34.4, RDW Coeff of Catarina 12.4, Plt Count 192, Immature Gran % (Auto) 0.2, Neut % (Auto) 50.1, Lymph % (Auto) 36.5, Payette % (Auto) 9.6, Eos % (Auto) 3.0, Baso % (Auto) 0.6, Neut # (Auto) 3.1, Lymph # (Auto) 2.3, Payette # (Auto) 0.6, Eos # (Auto) 0.2, Baso # (Auto) 0.0, Immature Gran # (Auto) 0.0 ASSESSMENT: Please see below. 1. Hypotension, resolved, hypertensive medications still on hold 2. Atrial fibrillation paroxysmal already on Eliquis 3. Etiology of right flank and right lower quadrant pain unknown practically resolved PLAN: 1. Undergo Hida scan 2. The patient has been explained about Eliquis and it's side effects such as intracranial bleed and GI bleed advised not to take any non-steroidal anti- flammatory. Complications of atrial fibrillation discussed in detail. Plan and coordination of the patient's care discussed in the presence of Literacy Consultant and nurse. CONDITION: Stable SCRIBED BY: MUSA JETER Contract Attorney scribed while in presence of service performed by Dr. KIT PATRICK on 01/31/21 ([id number])
[2021-01-31] MEDS: BUSPAR PO SCH (11:42)
[2021-01-31] MEDS: ZOLOFT PO SCH (11:43)
[2021-01-31] MEDS: PRAVACHOL PO SCH (11:43)
[2021-01-31] MEDS: BENTYL PO SCH (11:43)
[2021-01-31] MEDS: GLUCOPHAGE PO SCH (11:43)
[2021-01-31] MEDS: K-DUR PO SCH (11:43)
[2021-01-31] MEDS: ELIQUIS PO SCH (11:46)
--- NOTE | 2021-01-31 12:32 | NM ---
EXAM: Hepatobiliary scan HISTORY: Right-sided abdominal pain. Nausea. COMPARISON: None of this type. PROCEDURE: The patient was injected with 4.3 mCi of 99mTc mebrofenin intravenously. Images of the ab domen were obtained at 5 min intervals for 30 minutes. Additional images were obtained at 45 minute s and 1 hour. The patient was then given 8 ounces of Boost after which images of the gallbladder were obtained to assess gallbladder contraction. The patient reported no symptoms associated with Boost. FINDINGS: Sequential images demonstrate normal uptake of tracer into the liver. Activity is seen in the intrahepatic biliary ducts at about 10 minutes. The activity appears in the gallbladder at about 15 minutes. Subsequent images demonstrate increasing activity in the gallbladder. Activity first a ppears in the small bowel following Boost. The gallbladder ejection fraction is 76% . IMPRESSION: 1.Normal appearance of tracer in the gallbladder and normal transit of tracer into the common bile du ct,duodenum and small bowel. 2.The gallbladder ejection fraction is 76% (normal).
--- NOTE | 2021-01-31 14:04 | CM.DICTOOL ---
ADMISSION: 01/29/21 14:47 DISCHARGE: JANUARY 31, 2021 DATE OF SERVICE: 01/31/21 FINAL DIAGNOSIS HYPOTENSION WITH SYNCOPAL EPISODE FROM DEHYDRATION/ MEDICATION EFFECT PAROXYSMAL ATRIAL FIBRILLATION RECENT ABDOMINAL PAIN (INVESTIGATED AT [facility] WITH NEGATIVE WORK-UP) HYPERTENSION DIABETES MELLITUS, TYPE 2 FATTY LIVER CYST AND ANGIOMYOLIPOMA, RIGHT KIDNEY (STABLE) ANXIETY DEPRESSION DYSLIPIDEMIA CATARACT EXTRACTION, 2011 AND 2013 COLONOSCOPY WITH POLYP REMOVAL, 2017 DR. ROSE LAST ECHO: 10/22/20 LVH WITH ENLARGED LEFT ATRIAL CAVITY 5.4 LVEF 68% DILATED AORTIC ROOT HOLTER MONITOR 12/30 LAST VITALS Temp Pulse Resp BP Pulse Ox 97.9 F 59 L 18 125/75 98 01/31/21 05:17 01/31/21 05:17 01/31/21 05:17 01/31/21 05:17 01/31/21 05:17 TAKE THESE MEDICATIONS AT HOME Apixaban (Apixaban 5 Mg Tab) 5 mg PO BID [facility] (SAMPLES AND NEW RX) Last Admin: 01/31/21 11:46 Dose: 5 mg Documented by: Buspirone HCl (Buspirone Hcl 10 Mg Tablet) 15 mg PO BID [facility] Last Admin: 01/31/21 11:42 Dose: 15 mg Documented by: Metformin HCl (Metformin Hcl 500 Mg Tablet) 1,000 mg PO BIDWM [facility] Last Admin: 01/31/21 11:43 Dose: 1,000 mg Documented by: Omeprazole (Omeprazole 20 Mg Capsule.) 20 mg PO 1700 [facility] Last Admin: 01/30/21 17:42 Dose: 20 mg Documented by: Potassium Chloride (Potassium Chloride 20 Meq Tab) 20 meq PO BIDWM [facility] Last Admin: 01/31/21 11:43 Dose: 20 meq Documented by: Pravastatin Sodium (Pravastatin Sodium 20 Mg Tablet) 20 mg PO DAILY [facility] Last Admin: 01/31/21 11:43 Dose: 20 mg Documented by: Sertraline HCl (Sertraline Hcl 50 Mg Tablet) 50 mg PO DAILY [facility] Last Admin: 01/31/21 11:43 Dose: 50 mg Documented by: Jardiance 25 mg PO DAILY Last Admin: Amlodipine 10 mg 1/2 tablet PO DAILY Hyzaar 100-12.5 1/2 tablet PO DAILY (NEW RX) ALLERGIES No Known Allergies Allergy (Verified 01/29/21 12:15) DISCONTINUED MEDICATIONS METOPROLOL 50 MG DAILY METOPROLOL 25 MG AT BEDTIME NEW PRESCRIPTIONS: ELIQUIS 5 MG BID (SAMPLES FROM OFFICE PROVIDED 42 TABLETS) KAYY 100-12.5 TAKE 1/2 TABLET DAILY SMOKING: NOT APPLICABLE DISEASE SPECIFIC EDUCATION: ATRIAL FIBRILLATION, PAROXYSMAL NEW MEDICATION OF ELIQUIS; POTENTIAL FOR GI BLEEDING, INTRACRANIAL BLEEDING AVOIDING ALL ASPIRIN AND NSAIDS LAB REVIEW: 01/31/21 04:53 01/31/21 04:53 01/31/21 04:53: Sodium 140.3, Potassium 3.95, Chloride 106.2, Carbon Dioxide 25.5, Anion Gap 12.55, BUN 11.7, Creatinine 0.57 L, Estimated GFR (MDRD) 105.00, BUN/Creatinine Ratio 20.52, Glucose 96.9, Calcium 9.36, Total Bilirubin 0.79, AST 31.1, ALT 25.7, Alkaline Phosphatase 74.6, Total Protein 6.47, Albumin 3.96, Globulin 2.51, Albumin/Globulin Ratio 1.57 01/31/21 04:53: WBC 6.71, RBC 4.10 L, Hgb 12.8, Hct 37.5, MCV 91.5, MCH 31.2 H, MCHC 34.1, RDW Coeff of Catarina 12.1, Plt Count 172, Immature Gran % (Auto) 0.1, Neut % (Auto) 48.3, Lymph % (Auto) 39.9, Tompkins % (Auto) 9.2, Eos % (Auto) 1.9, Baso % (Auto) 0.6, Neut # (Auto) 3.2, Lymph # (Auto) 2.7, Tompkins # (Auto) 0.6, Eos # (Auto) 0.1, Baso # (Auto) 0.0, Immature Gran # (Auto) 0.0 PLAN: DISCHARGE HOME DIET: CONSISTENT CARBOHYDRATES ACTIVITY: GRADUALLY RESUME TOLERATED NO DRIVING IF EXPERIENCING DIZZINESS DO NOT TAKE ANY ASPIRIN, MOTRIN, IBUPROFEN, ALEVE, ADVIL OR ANY TYPE OF NSAID NOTIFY ALL PROVIDERS THAT YOU ARE TAKING ELIQUIS PRIOR TO ANY DENTAL OR INVASIVE PROCEDURE CODE STATUS: FULL CODE MRS. DUMONT IS ALERT AND ORIENTED X 4. SHE LIVES AT HOME WITH HER , KENYA. SHE IS AGREEABLE AND PLEASED WITH PLANS TO DISCHARGE HER HOME TODAY. MRS. DUMONT IS INDEPENDENT WITH ALL ACTIVITIES OF DAILY LIVING. SHE DOES NOT REQUIRE ASSISTANCE AT HOME OR ANY TYPE OF ASSISTIVE DEVICE. MEAL INTAKES HAVE BEEN GOOD AT 100%. SHE IS CONTINENT OF BOWEL AND BLADDER. SHE IS AMBULATORY IN THE ROOM WITHOUT USE OF ASSISTIVE DEVICE OR STAFF ASSISTANCE. HYDRATION STATUS IS GOOD. SKIN IS INTACT. KIT PATRICK MD
[2021-01-31 14:30] VITALS: BP 116/65; TEMP 97.8
[2021-02-01] MEDS ORDERED: DIFLUCAN PO SCH (09:00)
--- NOTE | 2021-02-03 10:56 | PN ---
DATE OF SERVICE: 01/30/21 SUBJECTIVE: The patient was seen and examined with the nurse practitioner. The patient's condition is stable. Blood pressure has come up to 112. All the hypertensives are being held. Will monitor the patient's rhythm. She is going to be started on Eliquis. The patient's Holter also showed atrial fibrillation in the past. The patient is in sinus rhythm. Now she is intermittently having atrial fib and sinus rhythm. Her LA cavity is more than 5 cm. TIME SPENT: More than 30 minutes. Plan and coordination of the patient's care discussed in the presence of nurse. MAC
--- NOTE | 2021-02-04 14:37 | DS ---
DATE OF SERVICE: 01/31/21 CODE STATUS: FULL CODE FINAL DIAGNOSIS: 1. HYPOTENSION WITH SYNCOPAL EPISODE FROM DEHYDRATION/MEDICATION EFFECT 2. PAROXYSMAL ATRIAL FIBRILLATION 3. RECENT ABDOMINAL PAIN (INVESTIGATED AT [facility] WITH NEGATIVE WORK-UP) 4. HYPERTENSION 5. DIABETES MELLITUS, TYPE 2 6. FATTY LIVER 7. CYST AND ANGIOMYOLIPOMA, RIGHT KIDNEY (STABLE) 8. ANXIETY 9. DEPRESSION 10. DYSLIPIDEMIA 11. CATARACT EXTRACTION, 2011 AND 2013 12. COLONOSCOPY WITH POLYP REMOVAL, 2018 DR. ROSE 13. LAST ECHO: 10/22/20 14. LVH WITH ENLARGED LEFT ATRIAL CAVITY 5.4, LVEF 68%, DILATED AORTIC ROOT 15. HOLTER MONITOR 12/30 LAST VITALS Temp Pulse Resp BP Pulse Ox 97.9 F 59 L 18 125/75 98 01/31/21 05:17 01/31/21 05:17 01/31/21 05:17 01/31/21 05:17 01/31/21 05:17 DISCHARGE INSTRUCTIONS: 1. Discharge home. 2. Do not take any apsirin, Motrin, Ibuprofen, Aleve, Advil, or any type of NSAID. 3. Notify all providers that you are taking Eliquis prior to any dental or invasive procedure. 4. No driving if consistent dizziness. MEDICATIONS AT DISCHARGE: Apixaban (Apixaban 5 Mg Tab) 5 mg PO BID [facility] (SAMPLES AND NEW RX) Last Admin: 01/31/21 11:46 Dose: 5 mg Documented by: Buspirone HCl (Buspirone Hcl 10 Mg Tablet) 15 mg PO BID [facility] Last Admin: 01/31/21 11:42 Dose: 15 mg Documented by: Metformin HCl (Metformin Hcl 500 Mg Tablet) 1,000 mg PO BIDWM [facility] Last Admin: 01/31/21 11:43 Dose: 1,000 mg Documented by: Omeprazole (Omeprazole 20 Mg Capsule.) 20 mg PO 1700 [facility] Last Admin: 01/30/21 17:42 Dose: 20 mg Documented by: Potassium Chloride (Potassium Chloride 20 Meq Tab) 20 meq PO BIDWM [facility] Last Admin: 01/31/21 11:43 Dose: 20 meq Documented by: Pravastatin Sodium (Pravastatin Sodium 20 Mg Tablet) 20 mg PO DAILY [facility] Last Admin: 01/31/21 11:43 Dose: 20 mg Documented by: Sertraline HCl (Sertraline Hcl 50 Mg Tablet) 50 mg PO DAILY [facility] Last Admin: 01/31/21 11:43 Dose: 50 mg Documented by: Bandar 25 mg PO DAILY Last Admin: Amlodipine 10 mg 1/2 tablet PO DAILY Hyzaar 100-12.5 1/2 tablet PO DAILY (NEW RX) NEW PRESCRIPTIONS: ELIQUIS 5 MG BID (SAMPLES FROM OFFICE PROVIDED 42 TABLETS) HYZAAR 100-12.5 TAKE 1/2 TABLET DAILY DISCONTINUED MEDICATIONS: METOPROLOL 50 MG DAILY METOPROLOL 25 MG AT BEDTIME DIET INSTRUCTIONS: CONSISTENT CARBOHYDRATES ACTIVITY: GRADUALLY RESUME TOLERATED SMOKING: NOT APPLICABLE DISEASE SPECIFIC EDUCATION: ATRIAL FIBRILLATION, PAROXYSMAL NEW MEDICATION OF ELIQUIS; POTENTIAL FOR GI BLEEDING, INTRACRANIAL BLEEDING AVOIDING ALL ASPIRIN AND NSAIDS HOSPITAL COURSE: 70-year-old white female was hospitalized because of syncopal episode. The patient had hypotension. The reason for hypotension was medication effect on top of dehydration. She had been worked up for right lower quadrant pain through the emergency room at [place], transferred to [facility] with practically no cause found. The patient had not been eating as much as she usually does and probably was behind her fluids, oral intake. In any case, the patient's systolic blood pressure was noted to be 70 to 80. The patient's cardiac workup was all negative. Telemetry showed atrial fibrillation with ventricular rate of 50 to 70/min. The patient has intermittent atrial fibrillation. She converted to sinus rhythm and stayed in sinus rhythm for 36 hours. The patient's holter monitor done as an outpatient a few weeks ago showed atrial fib. The rest of the day because of the load of atrial fib on that holter monitor, the patient noted for a few hours with atrial fibrillation on admission, it was decided to put her on Eliquis. Side effects of Eliquis discussed with the patient in detail. GI bleed and intracranial bleed was discussed on Eliquis. Also, not to take any nonsteroidal antiinflammatory with Eliquis unless it is prescribed by the physician. The patient has been taken off Metoprolol. She is going to take half the dose of Hyzaar 100/12.5 and half the dose of Norvasc 10 mg to be taken at night. She had an echocardiogram done months ago which showed LA cavity size 5.4 with LVH with normal LV contractility. Condition at time of discharge stable. The patient's rhythm will be monitored as an outpatient along with labs. TIME SPENT: More than 60 minutes. MTDD
--- NOTE | 2021-02-04 14:40 | PN ---
BILLING 01/29/21 ADMISSION DAY LEVEL 5 01/30/21 INTERMEDIATE 01/31/21 FINAL DAY - DISCHARGE MAC
== END 2021-01-31 14:40 | disposition home or self-care (01) | DRG 316 ==
LOC: ED 12:07 → MEDSURG A 14:47
PROVIDERS: ADMIT Internal Medicine; ATTEND Internal Medicine
DX: I49.9 Cardiac arrhythmia, unspecified; R55 Syncope and collapse; E11.9 Type 2 diabetes mellitus without complications; K76.0 Fatty (change of) liver, not elsewhere classified; E86.0 Dehydration; T44.7X1A Poisoning by beta-adrenoreceptor antagonists, accidental (unintentional), initial encounter; R53.1 Weakness; F41.3 Other mixed anxiety disorders; Z20.822 Contact with and (suspected) exposure to COVID-19; R42 Dizziness and giddiness; Z79.01 Long term (current) use of anticoagulants; E78.5 Hyperlipidemia, unspecified; R11.2 Nausea with vomiting, unspecified; R10.31 Right lower quadrant pain; I95.9 Hypotension, unspecified

== ENCOUNTER 2021-07-06 18:33 | Inpatient (IN) ==
--- NOTE | 2021-07-06 19:20 | CT ---
EXAM: CT head without contrast TECHNIQUE: Noncontrast CT of the head with multiple reformats. HISTORY: Acute altered mental status. COMPARISON: Brain MRI 08/10/2014. FINDINGS: No evidence of acute infarction, hemorrhage, or mass. Mild diffuse brain volume loss. Moderate nonspecific white matter hypodensities likely due to chroni c microvascular ischemic change. Calcific atherosclerosis of the carotid siphons and vertebral arteries. No brain herniation. Patent basilar cisterns. Ventricles are proportional to brain volume. No acute osseous abnormality. Bilateral lens replacements of the globes. Mild sinus mucosal changes. IMPRESSION: 1. No acute intracranial abnormality. 2. Chronic changes as described. All CT scans are performed using dose optimization techniques as appropriate to the performed exam an d include at least one of the following: Automated exposure control, adjustment of the mA and/or kV according t o size, and the use of iterative reconstruction technique.
[2021-07-06] MEDS ORDERED: SODIUM CHLORIDE 1,000 ML IV STA ×2 (19:24)
--- NOTE | 2021-07-06 19:31 | ED.PDOC ---
General ED Provider: Dr. JOSE F DOW Chief Complaint: Non-specific Complaint Stated Complaint: patient comes to the ER 2 hours after an episode of Dysarthria between 530 and 550 while eating, symptoms totally resolved and drove self to the ER. Time Seen by Provider: 07/06/21 19:24 Mode of Arrival: Walk-In Information Source: Patient Primary Care Provider: KIT GORMAN Nursing and Triage Documentation Reviewed and Agree: Yes Does patient meet sepsis criteria?: No If yes, has appropriate treatment been initiated?: No System Inflammatory Response Syndrome: Not Applicable Sepsis Protocol: For patient's 13 years and over: Temp is 96.8 and below OR 101 and greater Pulse >90 BPM Resp >20/minute Acutely Altered Mental Status Are patient's symptoms suggestive of a new infection, such as: -Pneumonia -Skin, Soft Tissue -Endocarditis -UTI -Bone, Joint Infection -Implantable Device -Acute Abdominal Infection -Wound Infection -Meningitis -Blood Stream Catheter Infection -Unknown Review of Systems Review Of Systems Constitutional: Reports No symptoms Eyes: Reports No symptoms Ears, Nose, Mouth, Throat: Reports No symptoms Respiratory: Reports No symptoms Cardiac: Reports No symptoms GI: Reports No symptoms : Reports No symptoms Musculoskeletal: Reports No symptoms Skin: Reports No symptoms Neurological: Reports Other (Dysarthria between 530 and 550 while eating ) Endocrine: Reports No symptoms Hematologic/Lymphatic: Reports No symptoms All Other Systems: Reviewed and Negative [facility] Medical History (Updated 07/06/21 @ 21:04 by JOSE F DOW MD) Atrial fibrillation Cataract Diabetes mellitus Hypertension Family History (Updated 01/29/21 @ 17:25 by RALF GRIFFITH, SUKHI) Mother Ovarian cancer FATHER Cerebrovascular accident Diabetes Respiratory disease SISTER Diabetes Atrial fibrillation Kidney disease BROTHER Diabetes Social History Smoking and tobacco status: Never smoker History of recent travel: No Female Reproductive History Menstrual Hx Hysterectomy: No Hx Tubal Ligation: Yes Physical Exam Physical Exam Appearance: Reports Well-nourished and Obese Ill-appearing: None Pain Distress: None Eyes: Reports RAFFI, EOMI and Conjunctiva clear ENT: Reports Ears normal, Nose normal and Oropharynx normal Neck: Supple Respiratory: Reports Airway patent, Breath sounds clear, Breath sounds equal and Respirations nonlabored Cardiovascular: Reports RRR, Pulses normal, No rub and No murmur GI/: Reports Soft, Nontender, No masses, Bowel sounds normal and No Organomegaly Musculoskeletal: Reports Normal strength, ROM intact, No edema and No calf tenderness Skin: Reports Warm, Dry and Normal color Neurological: Reports Sensation intact, Motor intact, Reflexes intact, Cranial nerves intact, Alert and Oriented Psychiatric: Reports Anxious NIH Stroke Scale 1a. Level of Consciousness: 0=Alert and keenly responsive 1b. Level of Consciousness Questions: 0=Answers correctly to two questions 2. Best Gaze: 0=Normal 3. Visual: 0=No visual loss 4. Facial Palsy: 0=Normal 5a. Motor Left Arm: 0=No drift,arm holds 90 degrees for 10 sec., leg 30 degrees for 5 sec. 5b. Motor Right Arm: 0=No drift,arm holds 90 degrees for 10 sec., leg 30 degrees for 5 sec. 6a. Motor Left Le=No drift,arm holds 90 degrees for 10 sec., leg 30 degrees for 5 sec. 6b. Motor Right Le=No drift,arm holds 90 degrees for 10 sec., leg 30 degrees for 5 sec. 7. Limb Ataxia: 0=Absent 8. Sensory: 0=Normal 9. Best Language: 0=No aphasia 10. Dysarthria: 0=Normal 11. Extincion and Inattention: 0=Normal Stroke Scale Total: 0 Interpretation Radiology Interpretation Radiology Interpretation By: Radiologist Radiology Results: No acute changes Exam Interpreted: CT Scan (1. No acute intracranial abnormality. 2. Chronic changes as described.) Physician Notification Case Discussed Physician Notified: Dr Gorman Time of Notification: 20:45 (admit to [facility] ) Critical Care Note Critical Care Note Total Critical Care Time (mins): 30 Course Course Hematology/Chemistry: 07/07/21 03:10 07/07/21 03:10 Orders, Labs, Meds: Lab Review 07/06/21 07/06/21 07/06/21 19:30 19:30 19:35 WBC 10.66 H RBC 3.89 L Hgb 11.9 L Hct 35.7 L MCV 91.8 MCH 30.6 MCHC 33.3 RDW Coeff of Catarina 12.4 Plt Count 146 Immature Gran % (Auto) 0.2 Neut % (Auto) 43.8 Lymph % (Auto) 24.8 [place] % (Auto) 9.7 Eos % (Auto) 21.1 H Baso % (Auto) 0.4 Neut # (Auto) 4.7 Lymph # (Auto) 2.6 [place] # (Auto) 1.0 Eos # (Auto) 2.3 H Baso # (Auto) 0.0 Immature Gran # (Auto) 0.0 PT INR APTT Puncture Site Base Excess O2 Saturation ABG pH ABG pCO2 ABG pO2 ABG HCO3 ABG Total CO2 Freddie Test Hemoglobin Oxyhemoglobin Carboxyhemoglobin Total Hemoglobin FiO2 % Sodium Potassium Chloride Carbon Dioxide Anion Gap BUN Creatinine Estimated GFR (MDRD) BUN/Creatinine Ratio Glucose Calcium Total Bilirubin AST ALT Alkaline Phosphatase Total Protein Albumin Globulin Albumin/Globulin Ratio TSH 0.849 Free T4 1.10 Adenovirus (PCR) B. pertussis DNA (PCR) B.parapertussis DNA PCR C. pneumoniae DNA (PCR) Coronavirus OC43 (PCR) Coronavirus HKU1 (PCR) Coronavirus 229E (PCR) Coronavirus NL63 (PCR) Human Metapneumovir PCR Influenza Type A (PCR) Influenza B (RT-PCR) M. pneumoniae (PCR) Parainfluenza 1 (PCR) Parainfluenza 2 (PCR) Parainfluenza 3 (PCR) Parainfluenza 4 (PCR) RSV (PCR) Entero/Rhino (PCR) SARS-CoV-2 (PCR) 07/06/21 07/06/21 07/06/21 19:35 19:35 19:35 WBC RBC Hgb Hct MCV MCH MCHC RDW Coeff of Catarina Plt Count Immature Gran % (Auto) Neut % (Auto) Lymph % (Auto) [place] % (Auto) Eos % (Auto) Baso % (Auto) Neut # (Auto) Lymph # (Auto) [place] # (Auto) Eos # (Auto) Baso # (Auto) Immature Gran # (Auto) PT 10.5 INR 1.01 APTT 26.4 Puncture Site Lb Base Excess 1.8 O2 Saturation 92.7 L ABG pH 7.40 ABG pCO2 43.0 ABG pO2 66.0 L ABG HCO3 26.6 ABG Total CO2 27.9 H Freddie Test + Hemoglobin 0.8 Oxyhemoglobin 91.9 L Carboxyhemoglobin 0.6 Total Hemoglobin 16.3 FiO2 % 21.0 Sodium 140.0 Potassium 3.52 Chloride 104.1 Carbon Dioxide 28.0 Anion Gap 11.42 BUN 12.9 Creatinine 0.64 Estimated GFR (MDRD) 91.00 BUN/Creatinine Ratio 20.15 Glucose 140.4 H Calcium 9.34 Total Bilirubin 0.68 AST 28.7 ALT 16.9 Alkaline Phosphatase 103.0 Total Protein 6.81 Albumin 4.14 Globulin 2.67 Albumin/Globulin Ratio 1.55 TSH Free T4 Adenovirus (PCR) B. pertussis DNA (PCR) B.parapertussis DNA PCR C. pneumoniae DNA (PCR) Coronavirus OC43 (PCR) Coronavirus HKU1 (PCR) Coronavirus 229E (PCR) Coronavirus NL63 (PCR) Human Metapneumovir PCR Influenza Type A (PCR) Influenza B (RT-PCR) M. pneumoniae (PCR) Parainfluenza 1 (PCR) Parainfluenza 2 (PCR) Parainfluenza 3 (PCR) Parainfluenza 4 (PCR) RSV (PCR) Entero/Rhino (PCR) SARS-CoV-2 (PCR) 07/06/21 21:00 WBC RBC Hgb Hct MCV MCH MCHC RDW Coeff of Catarina Plt Count Immature Gran % (Auto) Neut % (Auto) Lymph % (Auto) [place] % (Auto) Eos % (Auto) Baso % (Auto) Neut # (Auto) Lymph # (Auto) [place] # (Auto) Eos # (Auto) Baso # (Auto) Immature Gran # (Auto) PT INR APTT Puncture Site Base Excess O2 Saturation ABG pH ABG pCO2 ABG pO2 ABG HCO3 ABG Total CO2 Freddie Test Hemoglobin Oxyhemoglobin Carboxyhemoglobin Total Hemoglobin FiO2 % Sodium Potassium Chloride Carbon Dioxide Anion Gap BUN Creatinine Estimated GFR (MDRD) BUN/Creatinine Ratio Glucose Calcium Total Bilirubin AST ALT Alkaline Phosphatase Total Protein Albumin Globulin Albumin/Globulin Ratio TSH Free T4 Adenovirus (PCR) Not detected B. pertussis DNA (PCR) Not detected B.parapertussis DNA PCR Not detected C. pneumoniae DNA (PCR) Not detected Coronavirus OC43 (PCR) Not detected Coronavirus HKU1 (PCR) Not detected Coronavirus 229E (PCR) Not detected Coronavirus NL63 (PCR) Not detected Human Metapneumovir PCR Not detected Influenza Type A (PCR) Not detected Influenza B (RT-PCR) Not detected M. pneumoniae (PCR) Not detected Parainfluenza 1 (PCR) Not detected Parainfluenza 2 (PCR) Not detected Parainfluenza 3 (PCR) Not detected Parainfluenza 4 (PCR) Not detected RSV (PCR) Not detected Entero/Rhino (PCR) Detected H SARS-CoV-2 (PCR) Not detected Orders Category Date Time Status ADMIT PATIENT INPATIENT .TO [facility] (MONITORED BED) ADMISSION 07/06/21 20:49 Active ABG DRAW REQUEST Stat CARDIO 07/06/21 19:27 Completed ECHOCARDIOGRAM 2D-M MODE Routine CARDIO 07/07/21 08:54 Ordered EKG-(ED ONLY) Stat CARDIO 07/06/21 19:25 Completed EKG-(IP & OP ONLY) Routine CARDIO 07/07/21 07:54 Ordered OXYGEN Routine CARDIO 07/06/21 20:49 Active BLOOD GLUCOSE MONITORING (MED/SURG) 0630,1100,1700,2100 CARE 07/06/21 20:54 Active GIVE HS SNACK 2100 CARE 07/06/21 20:53 Active INTAKE & OUTPUT Q8HR CARE 07/06/21 20:50 Active Neuro Check [NEUROLOGICAL CHECKS] Q2HR CARE 07/06/21 20:54 Active TELEMETRY MONITORING TELE CARE 07/06/21 20:51 Active VITAL SIGNS Q4HR CARE 07/06/21 20:52 Active ADA 1800 RYAN. DIET DIETARY 07/06/21 Breakfast Ordered HS SNACK DIETARY 07/06/21 Dinner Ordered ED ACCUCHECK ASSESSMENT .ONCE EMERGENCY 07/06/21 19:25 Active ED APPLY O2 .ONCE EMERGENCY 07/06/21 19:25 Active ED IV/MEDIPORT/POWERPORT .ONCE EMERGENCY 07/06/21 19:25 Active ABG COOX Stat LAB 07/06/21 19:35 Completed CBC W/ AUTO DIFF DAILY@0600 LAB 07/07/21 03:10 Completed CBC W/ AUTO DIFF DAILY@0600 LAB 07/08/21 06:00 Ordered CBC W/ AUTO DIFF Stat LAB 07/06/21 19:35 Completed COMPREHENSIVE METABOLIC PANEL DAILY@0600 LAB 07/07/21 03:10 Completed COMPREHENSIVE METABOLIC PANEL DAILY@0600 LAB 07/08/21 06:00 Ordered COMPREHENSIVE METABOLIC PANEL Stat LAB 07/06/21 19:35 Completed CREATINE KINASE Q8H LAB 07/07/21 03:10 Completed CREATINE KINASE Q8H LAB 07/07/21 11:00 Ordered FREE T4 (FREE THYROXINE) Stat LAB 07/06/21 19:30 Completed PARTIAL THROMBOPLASTIN TIME Stat LAB 07/06/21 19:35 Completed PT WITH INR Stat LAB 07/06/21 19:35 Completed RESPIRATORY PANEL 2.1 (PCR) Stat LAB 07/06/21 21:00 Completed TROPONIN I Q8H LAB 07/07/21 03:10 Completed TROPONIN I Q8H LAB 07/07/21 11:00 Ordered TSH [THYROID STIMULATING HORMONE] Stat LAB 07/06/21 19:30 Completed 0.9 % Sodium Chloride [Saline Flush] MEDS 07/06/21 19:24 Active 1 syr IVF PRN PRN Acetaminophen [Tylenol] MEDS 07/06/21 20:54 Active 650 mg PO Q4H PRN Aspirin [Aspirin Chewable] MEDS 07/06/21 20:54 Discontinued 81 mg PO ONCE STA Aspirin [Aspirin EC] MEDS 07/07/21 08:30 Active 81 mg PO DAILYWM Ondansetron HCl/Pf [Zofran 4 mg/2 ml] MEDS 07/06/21 20:54 Active 4 mg IVP Q6H PRN Sodium Chloride 0.9% [Sodium Chloride] 1,000 ml MEDS 07/06/21 19:32 Discontinued IV 125 mls/hr Sodium Chloride 0.9% [Sodium Chloride] 1,000 ml MEDS 07/06/21 19:24 Discontinued IV 30 mls/hr RESUSCITATION STATUS Routine OTHERS 07/06/21 20:[address] HEAD W/O CONTRAST Stat RADS 07/06/21 19:03 Completed ULTRASOUND DOPPLER CAROTID [U/S DOPPLER CAROTID] Stat RADS 07/06/21 20:54 Ordered Medications Generic Name Dose Route Start Last Admin Trade Name Freq PRN Reason Stop Dose Admin Acetaminophen 650 mg 07/06/21 20:54 Acetaminophen 325 Mg Tablet PO Q4H PRN Fever and Mild Pain Apixaban 5 mg 07/07/21 09:00 Apixaban 5 Mg Tab PO BID BARTOLO Aspirin 81 mg 07/07/21 08:30 Aspirin 81 Mg Tablet. PO DAILYWM BARTOLO Buspirone HCl 15 mg 07/07/21 09:00 Buspirone Hcl 10 Mg Tablet PO BID [facility] Metformin HCl 1,000 mg 07/07/21 08:30 Metformin Hcl 500 Mg Tablet PO BIDWM [facility] Metoprolol Tartrate 12.5 mg 07/07/21 02:30 07/07/21 03:07 Metoprolol Tartrate 50 Mg Tablet PO 12.5 mg BID BARTOLO Administration Non-Formulary Medication 0.25 tab 07/07/21 09:00 Losartan-Hydrochlorothiazide [Hyzaar] PO DAILY BARTOLO Omeprazole 20 mg 07/07/21 21:00 Omeprazole 20 Mg Capsule.Dr PO BEDTIME BARTOLO Ondansetron HCl 4 mg 07/06/21 20:54 Ondansetron Hcl/Pf 4 Mg/2 Ml Sdv IVP Q6H PRN Nausea / Vomiting Potassium Chloride 20 meq 07/07/21 09:00 Potassium Chloride 20 Meq Tab PO BID BARTOLO Pravastatin Sodium 20 mg 07/07/21 09:00 Pravastatin Sodium 20 Mg Tablet PO DAILY BARTOLO Sertraline HCl 50 mg 07/07/21 09:00 Sertraline Hcl 50 Mg Tablet PO DAILY BARTOLO Sodium Chloride 1 syr 07/06/21 19:24 0.9% Sodium Chloride 10 Ml Disp.Syrin IVF PRN PRN To flush IV Discontinued Medications Generic Name Dose Route Start Last Admin Trade Name Freq PRN Reason Stop Dose Admin Aspirin 81 mg 07/06/21 20:54 07/06/21 21:14 Aspirin 81 Mg Tab.Chew PO 07/06/21 20:55 81 mg ONCE STA Administration Sodium Chloride 1,000 mls @ 30 mls/hr 07/06/21 19:24 07/06/21 19:31 Sodium Chloride IV 07/08/21 04:43 30 mls/hr .[id number] STA Administration Sodium Chloride 1,000 mls @ 125 mls/hr 07/06/21 19:32 07/07/21 03:08 Sodium Chloride IV 07/07/21 03:23 125 mls/hr .Q8H STA Administration Vital Signs: Temp Pulse Resp BP Pulse Ox 07/06/21 18:35 97.0 F L 60 16 166/87 H 97 Discharge Plan Discharge Patient Disposition: ADMITTED INPATIENT Discharge Problem: Brain TIA ED Provider: TAMEKA ALEXANDER Condition: Stable Physician Progress Note: []
[2021-07-06 19:40] LABS: BASOPHILS % (AUTO) 0.4 % (0.0-3.0); EOSINOPHILS # (AUTO) 2.3 K/ul (0.0-0.7); EOSINOPHILS % (AUTO) 21.1 % (0.0-7.0); HEMATOCRIT 35.7 % (37.0-47.0); HEMOGLOBIN 11.9 g/dl (12.0-16.0); IMMATURE GRANULOCYTE % (AUTO) 0.2 % (0.0-5.0); LYMPHOCYTES # (AUTO) 2.6 K/uL (0.60-3.4); LYMPHOCYTES % (AUTO) 24.8 (10.0-50.0); MEAN CORPUSCULAR HEMOGLOBIN 30.6 pg (27.0-31.0); MEAN CORPUSCULAR HGB CONC 33.3 (31.8-35.4); MEAN CORPUSCULAR VOLUME 91.8 fl (81.0-99.0); MONOCYTES % (AUTO) 9.7 (0-10); NEUTROPHILS # (AUTO) 4.7 K/ul (2.0-6.9); NEUTROPHILS % (AUTO) 43.8 % (42.2-75.2); PLATELET COUNT 146 10^3/uL (140-440); RDW COEFFICIENT OF VARIATION 12.4 % (11.6-14.8); RED BLOOD COUNT 3.89 10^6/ul (4.20-5.40); WHITE BLOOD COUNT 10.66 K/ul (4.6-10.2)
[2021-07-06 19:41] LABS: ABG O2 HGB 91.9 % (95-100); BEecf 1.8 (-2.0-3.0); COHb 0.6 (0.5-1.5); HCO3 26.6 (21-28); MetHb 0.8 (0-1.5); TCO2 27.9 (19-24); sO2 92.7 % (94-98); tHb 16.3 g/dl (11.7-17.4)
[2021-07-06 19:51] LABS: ALANINE AMINOTRANSFERASE 16.9 U/L (0-35); ALBUMIN 4.14 g/dL (3.5-5.0); ASPARTATE AMINO TRANSFERASE 28.7 U/L (14-36); BILIRUBIN,TOTAL 0.68 mg/dL (0.2-1.3); BLOOD UREA NITROGEN 12.9 mg/dL (7-17); CALCIUM 9.34 mg/dL (8.4-10.2); CHLORIDE 104.1 mmol/L (98-107); CREATININE 0.64 mg/dL (0.60-1.30); GLUCOSE 140.4 mg/dL (74-106); POTASSIUM 3.52 mmol/L (3.5-5.1); TOTAL PROTEIN 6.81 g/dL (6.3-8.2)
[2021-07-06] MEDS: SODIUM CHLORIDE 1,000 ML IV STA (20:19)
[2021-07-06 20:28] LABS: PARTIAL THROMBOPLASTIN TIME 26.4 SEC (23.9-40.0); PROTHROMBIN TIME 10.5 SEC (9.3-11.0)
[2021-07-06] MEDS ORDERED: ASPIRIN CHEWABLE PO STA (20:54)
[2021-07-06] MEDS ORDERED: TYLENOL PO PRN (20:54)
[2021-07-06] MEDS ORDERED: ZOFRAN 4 MG/2 ML IVP PRN (20:54)
[2021-07-06 21:13] LABS: BORDETELLA PARAPERTUSSIS (PCR) NOT DETECTED (NOT DETECT); BORDETELLA PERTUSSIS (PCR) NOT DETECTED (NOT DETECT); CHLAMYDIA PNEUMONIAE (PCR) NOT DETECTED (NOT DETECT); CORONAVIRUS 229E (PCR) NOT DETECTED (NOT DETECT); CORONAVIRUS HKU1 (PCR) NOT DETECTED (NOT DETECT); CORONAVIRUS NL63 (PCR) NOT DETECTED (NOT DETECT); CORONAVIRUS OC43 (PCR) NOT DETECTED (NOT DETECT); HUMAN METAPNEUMOVIRUS (PCR) NOT DETECTED (NOT DETECT); INFLUENZA B (PCR) NOT DETECTED (NOT DETECT); MYCOPLASMA PNEUMONIAE (PCR) NOT DETECTED (NOT DETECT); PARAINFLUENZA VIRUS 1 (PCR) NOT DETECTED (NOT DETECT); PARAINFLUENZA VIRUS 2 (PCR) NOT DETECTED (NOT DETECT); PARAINFLUENZA VIRUS 3 (PCR) NOT DETECTED (NOT DETECT); PARAINFLUENZA VIRUS 4 (PCR) NOT DETECTED (NOT DETECT); RESPIRATORY SYNCYTIAL V (PCR) NOT DETECTED (NOT DETECT); SARS_COV_2 (PCR) NOT DETECTED (NOT DETECT)
[2021-07-06 22:02] LABS: ADENOVIRUS (PCR) NOT DETECTED (NOT DETECT); HUMAN RHINOVIRUS/ENTEROV (PCR) DETECTED (NOT DETECT)
[2021-07-07 01:16] VITALS: BMI 29.0
[2021-07-07] MEDS: LOPRESSOR PO SCH ×3 (03:07→22:06)
[2021-07-07] MEDS: SODIUM CHLORIDE 1,000 ML IV STA (03:08)
[2021-07-07 03:14] LABS: BASOPHILS # (AUTO) 0.1 K/uL (0-0.2); BASOPHILS % (AUTO) 0.6 % (0.0-3.0); EOSINOPHILS # (AUTO) 2.2 K/ul (0.0-0.7); EOSINOPHILS % (AUTO) 25.2 % (0.0-7.0); HEMATOCRIT 34.7 % (37.0-47.0); HEMOGLOBIN 11.7 g/dl (12.0-16.0); IMMATURE GRANULOCYTE % (AUTO) 0.2 % (0.0-5.0); LYMPHOCYTES # (AUTO) 2.3 K/uL (0.60-3.4); LYMPHOCYTES % (AUTO) 26.8 (10.0-50.0); MEAN CORPUSCULAR HEMOGLOBIN 30.8 pg (27.0-31.0); MEAN CORPUSCULAR HGB CONC 33.7 (31.8-35.4); MEAN CORPUSCULAR VOLUME 91.3 fl (81.0-99.0); MONOCYTES # (AUTO) 0.7 K/uL (0.4-2.0); MONOCYTES % (AUTO) 8.2 (0-10); NEUTROPHILS # (AUTO) 3.4 K/ul (2.0-6.9); PLATELET COUNT 135 10^3/uL (140-440); RDW COEFFICIENT OF VARIATION 12.2 % (11.6-14.8); WHITE BLOOD COUNT 8.69 K/ul (4.6-10.2)
[2021-07-07 03:41] LABS: CREATINE KINASE 31.1 U/L (30-135)
[2021-07-07 03:43] LABS: ALANINE AMINOTRANSFERASE 14.5 U/L (0-35); ALBUMIN 3.89 g/dL (3.5-5.0); ALKALINE PHOSPHATASE 103.7 U/L (53-141); ASPARTATE AMINO TRANSFERASE 26.9 U/L (14-36); BILIRUBIN,TOTAL 1.03 mg/dL (0.2-1.3); BLOOD UREA NITROGEN 10.5 mg/dL (7-17); CALCIUM 9.11 mg/dL (8.4-10.2); CARBON DIOXIDE 28.6 mmol/L (22-30.0); CHLORIDE 106.5 mmol/L (98-107); CREATININE 0.57 mg/dL (0.60-1.30); GLUCOSE 117.8 mg/dL (74-106); POTASSIUM 3.64 mmol/L (3.5-5.1); SODIUM 140.6 mmol/L (134.5-145); TOTAL PROTEIN 6.38 g/dL (6.3-8.2)
[2021-07-07 03:59] LABS: TROPONIN I < 0.012 ng/ml (0.0000-0.120)
[2021-07-07] MEDS ORDERED: DECADRON IM ONE (08:30)
[2021-07-07] MEDS ORDERED: GLUCOPHAGE PO SCH (08:30)
[2021-07-07] MEDS: BUSPAR PO SCH ×2 (10:21→22:04)
[2021-07-07] MEDS: ASPIRIN EC PO SCH (10:22)
[2021-07-07] MEDS: ZOLOFT PO SCH (10:22)
[2021-07-07] MEDS: PRAVACHOL PO SCH (10:22)
[2021-07-07] MEDS: ELIQUIS PO SCH ×2 (10:22→22:08)
[2021-07-07] MEDS: K-DUR PO SCH ×2 (10:22→22:07)
[2021-07-07] MEDS: AUGMENTIN 875-125 MG TAB PO SCH ×2 (10:22→17:20)
[2021-07-07] MEDS: HYDROCHLOROTHIAZIDE PO SCH (11:13)
[2021-07-07] MEDS: COZAAR PO SCH (11:13)
--- NOTE | 2021-07-07 11:40 | CT ---
EXAM: CTA of the neck with and without contrast History: Transient ischemic attack. Comparison: CTA of the head 07/07/2021 Technique: Multiplanar CT images through the neck were obtained with and without the administration of IV contrast. MIP images and 3-D reconstructions were also acquired. FINDINGS: The visualized upper lungs are clear. No acute osseous abnormalities. Degenerative villalpando es of the cervical spine. Surrounding soft tissues demonstrate no acute findings. Chronic mucosal t hickening of the right sphenoid sinus. Mastoid air cells are clear. The bilateral subclavian arteries are patent without narrowing. The bilateral common carotid arterie s are patent without narrowing. There is less than 50% narrowing of the bilateral internal carotid a rteries with calcific plaque. There are no aneurysms. No dissection. Bilateral vertebral arteries are patent without narrowing. Impression: No significant arterial vascular occlusive disease within the neck. All CT scans are performed using dose optimization techniques as appropriate to the performed exam an d include at least one of the following: Automated exposure control, adjustment of the mA and/or kV according t o size, and the use of iterative reconstruction technique.
[2021-07-07 12:12] LABS: CREATINE KINASE 35.7 U/L (30-135)
[2021-07-07 12:37] LABS: TROPONIN I < 0.012 ng/ml (0.0000-0.120)
--- NOTE | 2021-07-07 13:43 | CT ---
EXAM: CT angiogram of the [place] with contrast TECHNIQUE: Helical axial CT angiogram of the [place] was performed with contrast with coron al and sagittal and multiplanar reconstructions as well as separate work station 3-D renderings. COMPARISON: CT head from 1 day earlier. HISTORY: Concern for stroke FINDINGS: Right internal carotid artery distribution: The right internal carotid artery is widely patent. There is some minimal non stenotic calcific atherosclerosis of the right internal carotid artery. The M1 s egment, bifurcation, M2 segments and opercular branches of the middle cerebral artery as well as the A1 and A2 segments of the anterior cerebral artery and their visualized branches are all widely paten t. Left internal carotid artery distribution: The left internal carotid artery is widely patent. There i s some minimal non stenotic calcific atherosclerosis of the internal carotid artery. There is moderat e to high-grade stenosis of the origins of the middle cerebral artery superior and inferior M2 branch es. The middle cerebral artery M1 segment is widely patent. There is some reduction in overall flow seen in the opercular branches of the left middle cerebral artery compared to the right likely secon edith to the stenoses. There is no branch occlusion identified. The A1 and A2 segments of the anteri or cerebral artery are widely patent. Anterior communicating artery: Patent Posterior communicating arteries: origin of the posterior cerebral artery on the right and not seen on the left Vertebral basilar system: The V4 segments of the vertebral arteries and the basilar artery are widely patent. There is a moderate stenosis of the P2 segment of the left posterior cerebral artery. The right posterior cerebral artery is widely patent. The vertebral arteries are codominant. There are no aneurysms or vascular malformations. The dural sinuses are widely patent. Head CT is unchanged. IMPRESSION: 1. 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 There is some resulting dimini shed runoff as a result but there is no branch occlusion identified. 2. Moderate stenosis of the P2 segment of the left posterior cerebral artery. There is a orig in of the right posterior cerebral artery. 3. Non stenotic calcific atherosclerosis of the bilateral internal carotid arteries. The remaining vessels of the [place] are otherwise widely patent with no additional stenosis and no aneury sm. All CT scans are performed using dose optimization techniques as appropriate to the performed exam an d include at least one of the following: Automated exposure control, adjustment of the mA and/or kV according t o size, and the use of iterative reconstruction technique.
--- NOTE | 2021-07-07 14:48 | PN ---
DATE OF SERVICE: 07/07/2021 SUBJECTIVE: The patient was seen and examined this morning. The patient's condition is stable. The patient is feeling fine. She was not able to express herself for 10- 15 minutes after seeing familiar person. was asking about that person and she couldn't say anything. No headache, no double vision. No weakness of any of the extremities. The patient panicked and came to the emergency room. The blood pressure is still higher on systolic side. REVIEW OF SYSTEMS: CONSTITUTIONAL: No night sweats. No fatigue, malaise, lethargy. No fever or chills. HEENT: Eyes: No visual changes. No eye pain. No eye discharge. ENT: No runny nose. No epistaxis. No sinus pain. No sore throat. No odynophagia. No congestion. RESPIRATORY: No cough, no congestion. No hemoptysis. No shortness of breath. CARDIOVASCULAR: No angina symptoms. No CHF symptoms. No atypical chest pain for CAD. No palpitations. No PND. No orthopnea. GASTROINTESTINAL: No abdominal pain. No nausea or vomiting. No diarrhea or constipation. No hematemesis. No hematochezia. GENITOURINARY: No urgency. No frequency. No dysuria. No hematuria. No obstructive symptoms. No discharge. No pain. No significant abnormal bleeding. MUSCULOSKELETAL: No musculoskeletal pain; no joint swelling. NEUROLOGICAL: No headache. No neck pain. No syncope. No seizures. No dizziness. PSYCHIATRIC: Not anxious. No depression. No suicidal thoughts. No homicidal thoughts. SKIN: No rash. No lesions. No wounds. ENDOCRINE: No unexplained weight loss. No weight gain. HEMATOLOGIC/LYMPHATIC: No anemia. No purpura. No petechiae. No prolonged or excessive bleeding. No palpable lymph nodes. PHYSICAL EXAMINATION: VITAL SIGNS: Temperature 98.4, systolic blood pressure 180, respiratory rate 15, pulse ox 98% on room air. HEENT: Head normocephalic, atraumatic. Eyes: Extraocular muscles are intact. Pupils are equal, round and reactive to light and accommodation. Ears: No lesions. Nose appeared normal. Throat: No exudate or erythema. NECK: Supple. No JVD, no carotid bruit. No lymphadenopathy or thyromegaly. LUNGS: Clear to auscultation. Percussion note normal. Chest symmetrical. HEART: S1, S2, no S3. No murmurs. No cyanosis or clubbing. No ascites. Pulses: Dorsalis pedis and posterior tibial pulses +1 to +2 bilaterally. ABDOMEN: Soft. Nontender. Bowel sounds active. No CVA tenderness. No mass felt. EXTREMITIES: No edema. Full range of motion of all extremities, equal. NEUROLOGIC: No focal deficit. Cranial nerves II through XII are grossly intact. No headache. No double vision. SKIN: Not dry. Intact. Turgor - normal. LYMPHATIC: No palpable lymph nodes/no lymphedema. MUSCULOSKELETAL: Normal joints with no swelling. Muscle tone is normal. ASSESSMENT: 1. Possibility TIA with dysphasia by history 2. History of atrial fibrillation on Eliquis PLAN: 1. The patient had carotid scan in January which showed less than 50% occlusive disease. We will do CT angiogram 2. CT scan head with contrast 3. Echocardiogram 4. The patient is overweight, advised to lose weight 5. Cut down on salt intake 6. Aspirin has been added to Eliquis 7. Neurological status is normal. CONDITION: Stable. TIME SPENT: More than 30 minutes. Plan and coordination of the patient's care discussed in the presence of nurse. MAC
[2021-07-07] MEDS ORDERED: PRILOSEC PO SCH (21:00)
[2021-07-08 05:18] VITALS: BP 139/77; TEMP 97.5
[2021-07-08 05:22] LABS: BASOPHILS % (AUTO) 0.2 % (0.0-3.0); EOSINOPHILS # (AUTO) 0.1 K/ul (0.0-0.7); EOSINOPHILS % (AUTO) 0.9 % (0.0-7.0); HEMATOCRIT 33.5 % (37.0-47.0); HEMOGLOBIN 11.6 g/dl (12.0-16.0); IMMATURE GRANULOCYTE % (AUTO) 0.2 % (0.0-5.0); LYMPHOCYTES # (AUTO) 1.9 K/uL (0.60-3.4); LYMPHOCYTES % (AUTO) 19.3 (10.0-50.0); MEAN CORPUSCULAR HEMOGLOBIN 31.3 pg (27.0-31.0); MEAN CORPUSCULAR HGB CONC 34.6 (31.8-35.4); MEAN CORPUSCULAR VOLUME 90.3 fl (81.0-99.0); MONOCYTES % (AUTO) 10.6 (0-10); NEUTROPHILS # (AUTO) 6.7 K/ul (2.0-6.9); NEUTROPHILS % (AUTO) 68.8 % (42.2-75.2); PLATELET COUNT 164 10^3/uL (140-440); RDW COEFFICIENT OF VARIATION 12.2 % (11.6-14.8); RED BLOOD COUNT 3.71 10^6/ul (4.20-5.40); WHITE BLOOD COUNT 9.69 K/ul (4.6-10.2)
[2021-07-08 05:38] LABS: ALANINE AMINOTRANSFERASE 14.9 U/L (0-35); ALBUMIN 4.03 g/dL (3.5-5.0); ALKALINE PHOSPHATASE 95.6 U/L (53-141); ASPARTATE AMINO TRANSFERASE 22.8 U/L (14-36); BILIRUBIN,TOTAL 0.96 mg/dL (0.2-1.3); BLOOD UREA NITROGEN 11.7 mg/dL (7-17); CALCIUM 9.41 mg/dL (8.4-10.2); CARBON DIOXIDE 29.1 mmol/L (22-30.0); CHLORIDE 104.5 mmol/L (98-107); CREATININE 0.56 mg/dL (0.60-1.30); GLUCOSE 133.6 mg/dL (74-106); POTASSIUM 3.62 mmol/L (3.5-5.1); SODIUM 139.5 mmol/L (134.5-145); TOTAL PROTEIN 6.55 g/dL (6.3-8.2)
[2021-07-08 09:18] LABS: CHOLESTEROL 138.3 mg/dL (0-200); HDL CHOLESTEROL 45.7 mg/dL (35-80); TRIGLYCERIDES 61.2 mg/dL (0-150)
[2021-07-08] MEDS: BUSPAR PO SCH (09:36)
[2021-07-08] MEDS: LOPRESSOR PO SCH (09:37)
[2021-07-08] MEDS: COZAAR PO SCH (09:37)
[2021-07-08] MEDS: ZOLOFT PO SCH (09:37)
[2021-07-08] MEDS: ASPIRIN EC PO SCH (09:37)
[2021-07-08] MEDS: AUGMENTIN 875-125 MG TAB PO SCH (09:37)
[2021-07-08] MEDS: K-DUR PO SCH (09:37)
[2021-07-08] MEDS: PRAVACHOL PO SCH (09:37)
[2021-07-08] MEDS: HYDROCHLOROTHIAZIDE PO SCH (09:37)
[2021-07-08] MEDS: ELIQUIS PO SCH (09:38)
--- NOTE | 2021-07-08 09:46 | PCM.PROG ---
Attending Provider: ATTENDING PROVIDER: Dr. KIT PATRICK This patient is seen with Kaylee Abernathy, Nurse Practitioner. DATE OF SERVICE: 07/08/21 SUBJECTIVE: This 71 year old /WHITE F was hospitalized 07/06/21. Blood pressure has been controlled. No episodes of dizziness or symptoms of TIA. CTA neck was normal. REVIEW OF SYSTEMS: CONSTITUTIONAL: No night sweats. No fatigue, malaise, lethargy. No fever or chills. HEENT: Eyes: No visual changes. No eye pain. No eye discharge. ENT: No runny nose. No epistaxis. No sinus pain. No odynophagia. No congestion. RESPIRATORY: No cough, no congestion. No hemoptysis. No shortness of breath. CARDIOVASCULAR: No angina symptoms. No CHF symptoms. No atypical chest pain for CAD. No palpitations. No orthopnea.. GASTROINTESTINAL: No abdominal pain. No nausea or vomiting. No diarrhea or constipation. No hematemesis. No hematochezia. GENITOURINARY: No urgency. No frequency. No dysuria. No hematuria. No obstructive symptoms. No discharge. No pain. No significant abnormal bleeding. MUSCULOSKELETAL: No musculoskeletal pain; no joint swelling. NEUROLOGICAL: Awake, alert, oriented to time, place and person. No headache. No neck pain. No syncope. No seizures. No dizziness. PSYCHIATRIC: Not anxious. No depression. No suicidal thoughts. No homicidal thoughts. SKIN: No rash. No lesions. No wounds. ENDOCRINE: No unexplained weight loss. No weight gain. HEMATOLOGIC/LYMPHATIC: No anemia. No purpura. No petechiae. No prolonged or excessive bleeding. No palpable lymph nodes. PHYSICAL EXAMINATION: GENERAL: The patient is awake, alert and oriented, lying in bed in no distress. VITAL SIGNS: Temperature 97.5 F, Pulse 52, Respiratory Rate 18, BP 139/77, Pulse Ox 96% HEENT: Head normocephalic, atraumatic. Eyes: Extraocular muscles are intact. Pupils are equal, round and reactive to light and accommodation. Ears: No lesions. Nose appeared normal. Throat: No exudate or erythema. NECK: Supple. No JVD, no carotid bruit. No lymphadenopathy or thyromegaly. LUNGS: Diminished breath sounds. Clear to auscultation. Percussion note normal. Chest symmetrical. HEART: S1, S2, no S3. Irregular heart rate. No murmurs. No cyanosis or clubbing. No ascites. Pulses: Dorsalis pedis and posterior tibial pulses +1 to +2 both sides. ABDOMEN: Soft. Non-tender. Bowel sounds active. No CVA tenderness. No mass felt. EXTREMITIES: No edema. Full range of motion of all extremities, equal. NEUROLOGIC: No focal deficit. Cranial nerves II through XII are grossly intact. No headache. No double vision. SKIN: Not dry. Intact. Turgor-normal. LYMPHATIC: No palpable lymph nodes/no lymphedema. MUSCULOSKELETAL: Normal joints with no swelling. Muscle tone is normal. LAB REVIEW: 07/08/21 04:25 07/08/21 04:25 07/08/21 04:25: Sodium 139.5, Potassium 3.62, Chloride 104.5, Carbon Dioxide 29.1, Anion Gap 9.52, BUN 11.7, Creatinine 0.56 L, Estimated GFR (MDRD) 106.00, BUN/Creatinine Ratio 20.89, Glucose 133.6 H, Calcium 9.41, Total Bilirubin 0.96, AST 22.8, ALT 14.9, Alkaline Phosphatase 95.6, Total Protein 6.55, Albumin 4.03, Globulin 2.52, Albumin/Globulin Ratio 1.59 07/08/21 04:25: WBC 9.69, RBC 3.71 L, Hgb 11.6 L, Hct 33.5 L, MCV 90.3, MCH 31.3 H, MCHC 34.6, RDW Coeff of [place] 12.2, Plt Count 164, Immature Gran % (Auto) 0.2, Neut % (Auto) 68.8, Lymph % (Auto) 19.3, [place] % (Auto) 10.6 H, Eos % (Auto) 0.9, Baso % (Auto) 0.2, Neut # (Auto) 6.7, Lymph # (Auto) 1.9, [place] # (Auto) 1.0, Eos # (Auto) 0.1, Baso # (Auto) 0.0, Immature Gran # (Auto) 0.0 07/07/21 11:57: Total Creatine Kinase 35.7, Troponin I < 0.012 ASSESSMENT: Please see below. 1. TIA 2. Atrial fibrillation 3. Dyslipidmia 4. Diabetes Mellitus type II 5. Obesity 6. Metabolic syndrome 7. Hypertension. PLAN: 1. Lipids and A1c 2. Discussed needing better control of blood sugar, lipids and blood pressure. The patient demonstrates understanding. Plan and coordination of the patient's care discussed in the presence of Chief Medical Director and nurse. SCRIBED BY: Libby TONEY scribed while in presence of service performed by Dr. Patrick/Kaylee Abernathy APRN on 07/08/21 ([id number])
--- NOTE | 2021-07-08 13:07 | PN ---
DATE OF SERVICE: 07/06/2021 ADMIT NOTE SUBJECTIVE: 75 year old white female hospitalized with inability to express herself for 15- 20 minutes at home or localized signs like weakness of any extremities. Only had a speech problems. No problems swallowing, no vomiting, no headache and no double vision. The patient got scared and came to the emergency room where the patient's entire neurological status was normal. She was speaking fluently. She did not have any headache, nausea or vomiting. No fever or chills. COVID test pending. Cardiovascular status is stable with atrial fibrillation. She is on Eliquis and has been taking the medication regularly. We will add baby aspirin to it. CAT scan was done which without contrast and there was no evidence of any bleeding. We will do Carotid scan in the morning and echocardiogram to rule out any intracardiac thrombus or thrombi. Monitor neurological status every two hourly. Continue the rest of the medications with routine telemetry orders. TIME SPENT: More than 30 minutes. Plan and coordination of the patient's care discussed in the presence of nurse. MAC
--- NOTE | 2021-07-08 13:18 | PN ---
07/06/2021: Level 5 07/07/2021: Intermediate 07/08/2021: D as in discharge MTDD
--- NOTE | 2021-07-08 13:18 | PN ---
DATE OF SERVICE: 07/08/2021 SUBJECTIVE: The patient was seen and examined with the Nurse Practitioner. The patient's condition is stable, No TIA or CVA. [employer] findings her neurological status every since admission is practically normal since her admission to the emergency room. The patient had artery near [place] not approachable surgically. The patient was explained about these findings. The internal carotid arteries are clinically not significant modification of risk factors is the plan. Discussed in detail with the patient. Echo showed no evidence of any thrombus or thrombi in the left antrum, the left antrum is practically the same size it was in July 2020. Contractility is normal. The patient has LVH. The patient is going to be continues on Eliquis also advised to lose weight and have non-HDL less than 70 discussed with her in detail. A1c and Lipid profile is pending. CONDITION: Stable TIME SPENT: More than 30 minutes. Plan and coordination of the patient's care discussed in the presence of nurse. MAC
--- NOTE | 2021-07-08 14:15 | ECHO2D ---
Date of Exam: 07/08/2021 Ordering Physician: DR. KIT PATRICK Room #: 111 Reason for Echo: TIA, HTN M-Mode Normal Adult Results LV Dimensions Normal Adult Results AoV Opening excursions >1.6 >1.6 LVEDD-base- 3.5-5.8 5.2 Ao root dimensions 2.0-3.7 4.0 LVESD-base- 3.1-4.6 L. Atrium dimensions 1.9-3.8 5.6 Post. Wall thickness 0.8-1.1 1.2 IV septum (thickness) 0.7-1.2 1.5 Post. Wall excursion 0.72-1.3 NORMAL Septal motion NORMAL Systolic motion R. Ventricular cavity 1.5-2.0 NORMAL LVEF 60% 60% Paradoxical septal wall motion NORMAL 2-D : 2-D M Mode Echocardiogram was performed using apical four chamber and left parasternal long and short axis views. Mitral, tricuspid and aortic valves appear to be normal. Contractility of the left ventricle seems to be normal, so is the cavity size. ENLARGED LEFT ATRIAL CAVITY. DILATED AORTIC ROOT. There is no pericardial effusion. There is no thrombus noted in the left ventricle or left atrial cavity. M-MODE: MV: NORMAL AV: NORMAL TV: NORMAL PV: CHAMBER SIZE: ENLARGED LEFT ATRIAL CAVITY, DILATED AORTIC ROOT WALL MOTION: NORMAL PERICARDIUM: NORMAL INTERPRETATION: 1. LEFT VENTRICLE HYPERTROPHY WITH ENLARGED LEFT ATRIAL CAVITY 2. MILDLY DILATED AORTIC ROOT 3. NORMAL LEFT VENTRICLE SIZE AND LEFT VENTRICLE CONTRACTILITY 4. NORMAL VALVES MTDD
--- NOTE | 2021-07-11 09:12 | HP ---
DATE OF SERVICE: 07/06/2021 REASON FOR HOSPITALIZATION/HISTORY OF PRESENT ILLNESS: 71 year old white female who presented to the emergency room after having and episode while out eating with her son and . She had a period where she became dazed. She had expressive asphasia. She said that she could think of words but she was unable to say it. Denies any weakness at this point. She does have a history of Afib and dyslipidemia. She actually drove herself to the emergency room. PAST MEDICAL HISTORY: Paroxysmal afib Hypertension Diabetes mellitus type II Fatty liver Dyslipdiemia Right kidney cyst Anxiety Depression PAST SURGICAL HISTORY: Bilateral cataract extraction Colonoscopy 2018 Last Echo was 10/30 REVIEW OF SYSTEMS: CONSTITUTIONAL: No night sweats. Fatigue. No fever or chills. HEENT: Eyes: No visual changes. No eye pain. No eye discharge. ENT: No runny nose. No epistaxis. No sinus pain. No sore throat. No odynophagia. No ear pain. No congestion. RESPIRATORY: No cough, no congestion. No hemoptysis. No shortness of breath. CARDIOVASCULAR: No angina symptoms. No CHF symptoms. No atypical chest pain for CAD. No palpitations. No PND. No orthopnea. GASTROINTESTINAL: No abdominal pain. No nausea or vomiting. No diarrhea or constipation. No hematemesis. No hematochezia. GENITOURINARY: No urgency. No frequency. No dysuria. No hematuria. No obstructive symptoms. No discharge. No pain. No significant abnormal bleeding. MUSCULOSKELETAL: No musculoskeletal pain. No joint swelling. No arthritis. NEUROLOGICAL: No headache. No neck pain. No syncope. No seizures. No dizziness. PSYCHIATRIC: Not anxious. No depression. No suicidal thoughts. No homicidal thoughts. SKIN: No rash. No lesions. No wounds. ENDOCRINE: No unexplained weight loss. No weight gain. HEMATOLOGIC/LYMPHATIC: No anemia. No purpura. No petechiae. No prolonged or excessive bleeding. No palpable lymph nodes. PERSONAL/FAMILY/SOCIAL HISTORY: She lives at home with her . She drive and performs all ADLS. Non-smoker. No alcohol or illicit drug use. MEDICATIONS: Buspirone 15mg PO BID Sertraline 50mg PO daily Klor-Con 20meq one tablet PO BID Prilosec OTC 20mg PO BEDTIME Glucophage 1000mg PO BID Pravastatin 20mg PO daily Eliquis 5mg PO BID Metoprolol 12.5mg PO BID Hyzaar 0.25mg PO daily ALLERGIES: No known allergies PHYSICAL EXAMINATION: GENERAL: The patient is alert and oriented times three. VITAL SIGNS: Temperature 97, heart rate 60, respiratory rate 16, blood pressure 166/87 and pulse ox 97%. HEENT: Head normocephalic, atraumatic. Eyes: Extraocular muscles are intact. Pupils are equal, round and reactive to light and accommodation. Ears: No lesions. Nose appeared normal. Throat: No exudate or erythema. NECK: Supple. No JVD, no carotid bruit. No lymphadenopathy or thyromegaly. LUNGS: Diminished breath sounds. Clear to auscultation. Percussion note normal. Chest symmetrical. HEART: S1, S2, no S3. No murmur. Irregular heart rate. No cyanosis or clubbing. No ascites. Pulses: Dorsalis pedis and posterior tibial pulses +1 to +2 bilaterally. ABDOMEN: Soft. Nontender. Bowel sounds active. No CVA tenderness. No mass felt. EXTREMITIES: No edema. Full range of motion of all extremities, equal. NEUROLOGIC: No focal deficit. Cranial nerves II through XII are grossly intact. No headache, no double vision or headache. SKIN: Not dry. Intact. Turgor - normal. LYMPHATIC: No palpable lymph nodes/no lymphedema. MUSCULOSKELETAL: Normal joints with no swelling. Muscle tone is normal. LABS: ABG on room air pCO2 43, pO2 66, O2 saturation 92%. Sodium 140, potassium 3.5, BUN 12, creatinine 0.64. WBC 10,000, Hgb 11.9, hct 35.7, plt count 146, TSH 0.8, Free T4 1.1, INR 1.01. Respiratory panel is positive for rhinovirus. CT of the brain without contrast shows no acute intracranial abnormality. ASSESSMENT: 1. TIA 2. Dyslipidemia 3. Afib on Eliquis 4. Diabetes Mellitus type II 5. Obesity 6. Hypertension PLAN: 1. We will admit 2. Routine telemetry orders 3. CBC and CMP daily 4. Order CT brain with and without contrast 5. CTA of the neck and CTA brain for tomorrow 6. U/A 7. Continue all home medications. 8. T4 TSH 9. Lipid panel 10.A1c 11.The patient recently had a carotid ultrasound already done in January. 12.Regular diet 13.Will follow closely TIME SPENT: More than 70 minutes. SCARLETTD
--- NOTE | 2021-07-11 09:54 | DS ---
DATE OF SERVICE: 07/08/2021 FINAL DIAGNOSIS: 1. TIA 2. Parozysmal atrial fibrillation (on Eliquis) 3. Hypertension 4. Diabetes Mellitus, type II 5. Fatty Liver 6. Metabolic syndrome 7. Cyst and Angiomyolipoma, right kidney (stable) 8. Anxiety 9. Depression 10.Dyslipidemia 11.GERD 12.IBS 13.Diverticulosis, per colonoscopy 14. Cataract extraction, 2011 and 2013 15. Colonoscopy with polyp removal, 03/10/2021(Dr. Bernard) 16. Echocardiogram 07/08/2021 LAST VITALS: Temperature 97.5, pulse 52, respiratory rate 18, blood pressure 139/77 and pulse ox 96% DISCHARGE INSTRUCTIONS: Discharge home to spouse. An appointment is scheduled on July [address] Gorman/Kaylee Abernathy APRN/Angella Finley APRN. CODE STATUS: Full code. MEDICATIONS AT DISCHARGE: Amoxicillin/potassium one tablet PO BID Apixaban 5mg PO BID Aspirin 81mg Po daily Buspirone 15mg PO BID Hyzaar 100/12.5mg PO BARTOLO daily Metformin 1000mg PO BID (Hold for 48 hours, Resume on 07/09/21) Metoprolol Tartrate 12.5mg PO BID Omeprazole 20mg PO bedtime Potassium Chloride 20meq PO BID Pravastatin Sodium 40mg PO daily Sertraline 50mg PO daily ALLERGIES: No known allergies NEW PRESCRIPTIONS: Augmentin 875-125mg PO BID with meals for 7 days Pravastatin 40mg daily Hyzaar 100-12.5mg DISCONTINUED MEDICATIONS: Hyzaar 0.25mg PO daily Pravastatin 20mg daily DIET INSTRUCTIONS: Heart healthy, consistent carbohydrate ACTIVITY: Gradually resume as tolerated SMOKING: N/A DISEASE SPECIFIC EDUCATION: TIA Importance of blood pressure control Vascular referral will be discussed at office appointment. HOSPITAL COURSE: 71 year old white female who had a period of expressive asphasia. She was kind of dazed while out to eat with her family. She reported that she could think of the words that she wanted to say but she was unable to say them or if she did say them they were not the correct words. The symptoms resolved within [address] She [address] herself to the emergency room and at that time was completely fine. CT of the brain without contrast and with contrast was normal. CTA of the neck was normal. It was found on CTA of the brain that she had some atherosclerosis in an artery near the [place] of [place] which is surgically not approachable. We have discussed with her with her risk factors that she has afib, diabetes, dyslipidemia and she is over weight that we needs to try to control these as much as possible. She has no episodes while she was here in the hospital with us. She remained in paroxysmal atrial fibrillation which is her normal. We continued her home medications. Labs remained stable. Dr. Gorman performed an echo which is essentially unchanged from the previous. I will send her home. We will add aspirin on top of her Eliquis just 81mg daily. We will increase her Pravastatin to 40mg with the hopes of keeping her non HDL less than 70. Her A1c was 6.6 so her sugar has been well controlled. We have advised her to lose weight. We may in the future refer her to vascular once she comes back to the office. TIME SPENT: More than 60 minutes. MAC
== END 2021-07-08 14:27 | disposition home or self-care (01) | DRG 69 ==
LOC: ED 18:33 → MEDSURG A 23:11
PROVIDERS: ADMIT Internal Medicine; ATTEND Internal Medicine
DX: Z79.01 Long term (current) use of anticoagulants; E11.9 Type 2 diabetes mellitus without complications; E66.9 Obesity, unspecified; G45.9 Transient cerebral ischemic attack, unspecified; Z20.822 Contact with and (suspected) exposure to COVID-19; E78.5 Hyperlipidemia, unspecified; Z79.899 Other long term (current) drug therapy; I10 Essential (primary) hypertension; I48.0 Paroxysmal atrial fibrillation

== ENCOUNTER 2022-11-22 09:34 | Observation (INO) ==
[2022-11-22] MEDS ORDERED: SODIUM CHLORIDE 1,000 ML IV STA (09:46)
[2022-11-22] MEDS ORDERED: ZOFRAN 4 MG/2 ML IVP STA (09:46)
--- NOTE | 2022-11-22 09:57 | ED.PDOC ---
General ED Provider: Dr. VINOD SARKAR MD Chief Complaint: Syncope Stated Complaint: PATIENT WITH A HISTORY OF PREVIOUS CVA SEPTEMBER 2022, ATRIAL FIBRILLATION, TYPE 2 DIABETES AND HYPERTENSION COMPLAINS OF EPISODES OF NEAR SYNCOPE PRIOR TO ARRIVAL. HAS ASSOCIATED NAUSEA, DENIES FALL, INJURY, TRAUMA, HE ADACHE, BLURRED VISION, SLURRED SPEECH, AND FOCAL NUMBNESS, TINGING AND WEAKNESS IN EXTREMITIES. Time Seen by Provider: 11/22/22 09:37 Mode of Arrival: Ambulance Information Source: Patient Exam Limitations: No limitations Primary Care Provider: KIT PATRICK MD Nursing and Triage Documentation Reviewed and Agree: Yes Does patient meet sepsis criteria?: No System Inflammatory Response Syndrome: Not Applicable Sepsis Protocol: For patient's 13 years and over: Temp is 96.8 and below OR 101 and greater Pulse >90 BPM Resp >20/minute Acutely Altered Mental Status Are patient's symptoms suggestive of a new infection, such as: -Pneumonia -Skin, Soft Tissue -Endocarditis -UTI -Bone, Joint Infection -Implantable Device -Acute Abdominal Infection -Wound Infection -Meningitis -Blood Stream Catheter Infection -Unknown Neurological Complaint Exam Syncope/Near Syncope Complaint/Exam Onset/Duration: 1 HOUR PRIOR TO ARRIVAL Symptoms Are: Resolved (IMPROVED) Episodes Lasting: Minutes Number of Episodes: 30-50 MINUTES Frequency of Episodes: 2-3 Episodes Witnessed: No Loss of Consciousness: No Associated Head Trauma: No Activity at Onset: At rest Aggravating: Position change Alleviating: Reports None Associated Signs and Symptoms: Reports Vomiting Cardiac Risk Factors: Reports Hypertension, Diabetes and CAD (ATRIAL FIBRILLATION) GI Bleed Risk Factors: Reports None Dysrhythmia Risk Factors: Reports >45 years old and Underlying CAD (HISTORY OF ATRIAL FIBRILLATION) Related Surgical History: Reports None JVD Present: Yes Carotid Bruit Present: Yes Glascow Coma Scale (see protocol): 15 Nystagmus Present: No Gag Reflex Present: Yes Meningeal Signs Positive: No Focal Weakness: Present None Focal Sensory Loss: Present None [id number]-vc-Umni: Normal Findings Romberg Test Positive: Yes Babinski Sign: Positive Right and Positive Left Heel to Toe Normal: Yes Differential Diagnoses: Dysrhythmia, Hypoglycemia, Hypovolemia and Vasovagal Episode Quality Indicators for Cardiac Chest Pain: EKG in 10min. Quality Indicator For Non-Traumatic Chest Pain/Syncope: EKG Performed Review of Systems Review Of Systems Constitutional: Reports Weakness Eyes: Reports No symptoms; Denies Blindness or Blurred vision Ears, Nose, Mouth, Throat: Reports No symptoms; Denies Ear pain, Ear discharge or Nose pain Respiratory: Reports No symptoms; Denies Cough, Orthopnea or Short of air Cardiac: Reports No symptoms and Irregular heart rate; Denies Chest pain or Edema GI: Reports Nausea and Vomiting : Reports No symptoms; Denies Burning, Dysuria or Discharge Musculoskeletal: Reports No symptoms; Denies Back pain or Gout Skin: Reports No symptoms; Denies Bruising or Change in color Neurological: Reports Other (NEAR SYNCOPE); Denies Anxiety or Depressed Endocrine: Reports No symptoms; Denies Excessive sweating or Flushing Hematologic/Lymphatic: Reports No symptoms All Other Systems: Reviewed and Negative [facility] Medical History Acute sinusitis J01.90 - Acute sinusitis, unspecified (ICD-10) Atherosclerosis I70.90 - Unspecified atherosclerosis (ICD-10) Atherosclerosis of arteries I70.90 - Unspecified atherosclerosis (ICD-10) Atrial fibrillation, permanent I48.21 - Permanent atrial fibrillation (ICD-10) B12 deficiency E53.8 - Deficiency of other specified B group vitamins (ICD-10) Chronic anticoagulation Z79.01 - snf (current) use of anticoagulants (ICD-10) CVA (cerebral vascular accident) I63.9 - Cerebral infarction, unspecified (ICD-10) Depression F32.A - Depression, unspecified (ICD-10) DM type 2 (diabetes mellitus, type 2) E11.9 - Type 2 diabetes mellitus without complications (ICD-10) Dyslipidemia E78.5 - Hyperlipidemia, unspecified (ICD-10) Fatty liver K76.0 - Fatty (change of) liver, not elsewhere classified (ICD-10) GERD (gastroesophageal reflux disease) K21.9 - Gastro-esophageal reflux disease without esophagitis (ICD-10) Hemiparesis affecting left side as late effect of stroke I69.354 - Hemiplegia and hemiparesis following cerebral infarction affecting left non-dominant side (ICD-10) HTN, goal below 130/80 I10 - Essential (primary) hypertension (ICD-10) IBS (irritable bowel syndrome) K58.9 - Irritable bowel syndrome without diarrhea (ICD-10) LVH (left ventricular hypertrophy) I51.7 - Cardiomegaly (ICD-10) Paroxysmal atrial fibrillation I48.0 - Paroxysmal atrial fibrillation (ICD-10) TIA (transient ischemic attack) G45.9 - Transient cerebral ischemic attack, unspecified (ICD-10) Vestibular dysfunction H83.2X9 - Labyrinthine dysfunction, unspecified ear (ICD-10) Family History Mother Ovarian cancer FATHER Cerebrovascular accident Diabetes Respiratory disease SISTER Diabetes Atrial fibrillation Kidney disease BROTHER Diabetes Social History Smoking and tobacco status: Never smoker Alcohol intake: never Counseling given: No Substance use type: does not use Special val needs: No Agree to transfusion: Yes Adopted: No Caregiver/support person: No Foster care: No Household members: spouse Housing: house Marital status: M Lives independently: Yes Number of children: 1 service: No penitentiary: No Current occupational status: retired Current occupational exposures/hazards: No Pets and animals: No History of recent travel: No Sexually active: No Do you think of yourself as: straight/heterosexual Current gender identity: female Seatbelt use: always Drives intoxicated or rides with intoxicated customer service driver: No Water heater temperature set < 120 degrees: Yes Working smoke detector in home: Yes Fire extinguisher in home: Yes Carbon monoxide detector in home: No Firearms in home: No Surgical History Cataract History of dilatation and curettage History of tubal ligation Female Reproductive History Menstrual Hx Hysterectomy: No Hx Tubal Ligation: Yes Physical Exam Physical Exam Appearance: Reports Well-appearing Ill-appearing: None Pain Distress: None Eyes: Reports RAFFI, EOMI and Conjunctiva clear; Denies Conjunctiva inflammed, Conjunctiva pale or Right pupil size ENT: Reports Ears normal, Nose normal and Oropharynx normal; Denies Rhinorrhea or Epistaxis Neck: Supple Respiratory: Reports Airway patent, Breath sounds clear and Breath sounds equal; Denies Breath sounds diminished or Respirations nonlabored Cardiovascular: Reports Pulses normal, No rub, No murmur and Irregular rhythm GI/: Reports Soft, Nontender, No masses and Bowel sounds normal; Denies No Organomegaly, Tender or Mass Musculoskeletal: Reports Normal strength, ROM intact, No edema and No calf tenderness; Denies Limited ROM or Limited strength Skin: Reports Warm, Dry and Normal color; Denies Pale or Diaphoretic Neurological: Reports Sensation intact, Motor intact, Reflexes intact and C ranial nerves intact Psychiatric: Reports Affect appropriate and Mood appropriate NIH Stroke Scale 1a. Level of Consciousness: 0=Alert and keenly responsive 1b. Level of Consciousness Questions: 0=Answers correctly to two questions 1c. Level of Consciousness Commands: 0=Performs two tasks correctly 2. Best Gaze: 0=Normal 3. Visual: 0=No visual loss 4. Facial Palsy: 0=Normal 5a. Motor Left Arm: 0=No drift,arm holds 90 degrees for 10 sec., leg 30 degrees for 5 sec. 5b. Motor Right Arm: 0=No drift,arm holds 90 degrees for 10 sec., leg 30 degrees for 5 sec. 6a. Motor Left Le=No drift,arm holds 90 degrees for 10 sec., leg 30 degrees for 5 sec. 6b. Motor Right Le=No drift,arm holds 90 degrees for 10 sec., leg 30 degrees for 5 sec. 8. Sensory: 0=Normal 10. Dysarthria: 0=Normal 11. Extincion and Inattention: 0=Normal Stroke Scale Total: 0 Interpretation Radiology Interpretation Radiology Interpretation By: Radiologist Radiology Results: No acute changes Exam Interpreted: CT Scan Xray Comments: HEAD CT SCAN NO ACUTE ABNORMALITY, CHRONIC BILAT LACUNAR INFARCTS Radiology Interpretation By: Radiologist Radiology Results: Negative Exam Interpreted: Portable CXR Xray Comments: NO ACUTE PROCESS Breakdown Person Time of Breakdown Person Interpretation: 10:00 Rhythm: Other (ATRIAL FIBRILLATION RATE 76) Ectopy: None EKG Interpretation Time of EKG #1: 10:03 Rate: Normal Rhythm: Other (ATRIAL FIBRILLATION) Ectopy: None [place]: [place] ST Segment: Normal Interpretation: ATRIAL FIBRILLATION RATE 76, NO ISCHEMIC CHANGES Re-Evaluation Re-Evaluation Time of Re-Evaluation: 10:33 Status: Improved Vital Signs Stable: Yes Appearance: NAD Lungs: Clear Skin: Warm and Dry Neuro: Alert and Oriented X3 CV: RRR Critical Care Note Critical Care Note Total Critical Care Time (mins): 0 Course Course 11/22/22 10:16 11/22/22 10:16 Orders, Labs, Meds: Lab Review 11/22/22 11/22/22 10:16 11:44 WBC 7.87 RBC 4.41 Hgb 13.6 Hct 40.1 MCV 90.9 MCH 30.8 MCHC 33.9 RDW Coeff of Catarina 11.9 Plt Count 196 Immature Gran % (Auto) 0.5 Neut % (Auto) 69.4 Lymph % (Auto) 20.7 [place] % (Auto) 8.0 Eos % (Auto) 1.1 Baso % (Auto) 0.3 Neut # (Auto) 5.5 Lymph # (Auto) 1.6 [place] # (Auto) 0.6 Eos # (Auto) 0.1 Baso # (Auto) 0.0 Immature Gran # (Auto) 0.0 PT 10.6 INR 1.02 Sodium 142.1 Potassium 3.56 Chloride 104.2 Carbon Dioxide 28.0 Anion Gap 13.46 BUN 12.1 Creatinine 0.78 Estimated GFR (MDRD) 72.00 BUN/Creatinine Ratio 15.51 Glucose 196.5 H Calcium 9.58 Magnesium 1.67 Total Bilirubin 1.28 AST 34.3 ALT 26.3 Alkaline Phosphatase 93.8 Troponin I < 0.012 Total Protein 7.75 Albumin 4.79 Globulin 2.96 Albumin/Globulin Ratio 1.61 SARS CoV-2 RNA Rapid CHAI Negative Orders Category Date Time Status EKG-(ED ONLY) Stat CARDIO 11/22/22 09:46 Completed TELEMETRY MONITORING TELE CARE 11/22/22 09:46 Active IV [ED IV/MEDIPORT/POWERPORT] .ONCE EMERGENCY 11/22/22 09:46 Active CBC W/ AUTO DIFF Stat LAB 11/22/22 10:16 Completed CMP [COMPREHENSIVE METABOLIC PANEL] Stat LAB 11/22/22 10:16 Completed COVID [SARS COV-2 RNA RAPID CHAI] Stat LAB 11/22/22 11:44 Completed MAGNESIUM Stat LAB 11/22/22 10:16 Completed PT WITH INR Stat LAB 11/22/22 10:16 Completed TROPONIN I Stat LAB 11/22/22 10:16 Completed URINALYSIS C & S IF INDICATED Stat LAB 11/22/22 09:46 Uncollected 0.9 % Sodium Chloride [Saline Flush] MEDS 11/22/22 09:46 Active 1 syr IVF PRN PRN Ondansetron HCl/Pf [Zofran 4 mg/2 ml] MEDS 11/22/22 09:46 Discontinued 4 mg IVP ONCE STA Sodium Chloride 0.9% [Sodium Chloride] 1,000 ml MEDS 11/22/22 09:46 Active IV 100 mls/hr CHEST, 1V AP ONLY Stat RADS 11/22/22 09:[address] HEAD W/O CONTRAST Stat RADS 11/22/22 09:46 Completed Medications Generic Name Dose Route Start Last Admin Trade Name Freq PRN Reason Stop Dose Admin Sodium Chloride 1,000 mls @ 100 mls/hr 11/22/22 09:46 11/22/22 10:19 Sodium Chloride IV 11/22/22 19:45 100 mls/hr .Q10H STA Administration Sodium Chloride 1 syr 11/22/22 09:46 0.9% Sodium Chloride 10 Ml Disp.Syrin IVF PRN PRN To flush IV Discontinued Medications Generic Name Dose Route Start Last Admin Trade Name Freq PRN Reason Stop Dose Admin Ondansetron HCl 4 mg 11/22/22 09:46 11/22/22 10:19 Ondansetron Hcl/Pf 4 Mg/2 Ml Sdv IVP 11/22/22 09:47 4 mg ONCE STA Administration Vital Signs: Temp Pulse Resp BP Pulse Ox 11/22/22 09:38 97.8 F 105 H 16 142/74 H 98 Discharge Plan Discharge Patient Disposition: PLACED OBSERVATION Discharge Problem: Near syncope Did you review [place] [employer] OPERATOR for ALL controlled substances?: Not Applicable ED Provider: VINOD SARKAR Physician Progress Note: MDM PATIENT WITH HISTORY OF RECENT CVA 09/2022, NO RESIDUAL DEFICITS, COMPLAINS OF NEAR SYNCOPAL EPISODES THIS AM PRIOR TO ARRIVAL DENEIS HEADACHE, BLURRED VISION, SLURRED SPEECH, FOCAL NUMBNESS, TINGLING WEAKNESS. DENIES DIZZINESS, CHEST PAIN AND DYSPNEA. HISTORY OBTAINED PER PATIENT. RISK FACTORS DISCUSSED WITH PATIENT CONCERNING PREVIOUS CVA, DIABETES AND ATRIAL FIBRILLATION. PRESENTLY ON ANTICOAGULATION ELIQUIS 5MG DAILY DIAGNOSIS: 1)NEAR SYNCOPE 2)VASOVAGAL SYNDROME 3)ARRHYTHMIA ATRIAL FIBRILLATION RVR 4)TRANSIENT ISCHEMIC ATTACK CONSULTS_DISCUSSED WITH DR Donte PATRICK AT 1120 FOR OBSERVATION, REFERRED PATIENT TO [facility] 1128 CONSULTED TIMUR ALEMAN FOR OBSERVATION [HEAD CT ] IMPRESSION: 1. Chronic age related changes. Bilateral lacunar infarcts. 2. No acute intracranial hemorrhage.
--- NOTE | 2022-11-22 10:14 | CT ---
EXAM: CT OF THE HEAD WITHOUT CONTRAST. HISTORY: Near syncope. COMPARISON: 09/16/2022 TECHNIQUE: Contiguous axial images at 5 mm intervals were obtained from the base of the skull to the vertex of the calvarium. No contrast was given. FINDINGS: Extra-axial spaces: The CSF contiaing spaces are diffusely enlarged consistent with atrophy.There ar e no extraaxial fluid collections. Hemorrhage: None Cerebral Parenchyma: There are hypodensities in the periventricular white matter and deep white matte r. These findings are non-specific but can be seen with chronic ischemic changes from small vessel d isease.Holt-white differentiation is normal. Bilateral lacunar infarcts are noted. Cerebellum: Mild atrophic changes.. Masses/Mass effect: None. There is no midline shift. Vasculature: Calcifications are seen in the carotid and vertebral arteries. Osseus Structures: Normal. Soft tissues/Sinuses: Normal. IMPRESSION: 1. Chronic age related changes. Bilateral lacunar infarcts. 2. No acute intracranial hemorrhage. All CT scans are performed using dose optimization techniques as appropriate to the performed exam an d include at least one of the following: Automated exposure control, adjustment of the mA and/or kV according t o size, and the use of iterative reconstruction technique.
--- NOTE | 2022-11-22 10:15 | DI ---
EXAM: SINGLE VIEW CHEST. HISTORY: Dyspnea COMPARISON: 01/29/2021 FINDINGS: The cardiomediastinal silhouette appears enlarged. Calcified plaques overlie the aorta. P ulmonary vascularity is within normal limits. No focal airspace opacity or pleural effusion is seen. Right basilar calcified granuloma is again seen. The bones appear diffusely demineralized. IMPRESSION: No acute cardiopulmonary findings. Cardiomegaly.
[2022-11-22 10:22] LABS: BASOPHILS % (AUTO) 0.3 % (0.0-3.0); EOSINOPHILS # (AUTO) 0.1 K/ul (0.0-0.7); EOSINOPHILS % (AUTO) 1.1 % (0.0-7.0); HEMATOCRIT 40.1 % (37.0-47.0); HEMOGLOBIN 13.6 g/dl (12.0-16.0); IMMATURE GRANULOCYTE % (AUTO) 0.5 % (0.0-5.0); LYMPHOCYTES # (AUTO) 1.6 K/uL (0.60-3.4); LYMPHOCYTES % (AUTO) 20.7 (10.0-50.0); MEAN CORPUSCULAR HEMOGLOBIN 30.8 pg (27.0-31.0); MEAN CORPUSCULAR HGB CONC 33.9 (31.8-35.4); MEAN CORPUSCULAR VOLUME 90.9 fl (81.0-99.0); MONOCYTES # (AUTO) 0.6 K/uL (0.4-2.0); NEUTROPHILS # (AUTO) 5.5 K/ul (2.0-6.9); NEUTROPHILS % (AUTO) 69.4 % (42.2-75.2); PLATELET COUNT 196 10^3/uL (140-440); RDW COEFFICIENT OF VARIATION 11.9 % (11.6-14.8); RED BLOOD COUNT 4.41 10^6/ul (4.20-5.40); WHITE BLOOD COUNT 7.87 K/ul (4.6-10.2)
[2022-11-22 10:30] LABS: PROTHROMBIN TIME 10.6 SEC (9.3-11.0)
[2022-11-22 10:32] LABS: ALANINE AMINOTRANSFERASE 26.3 U/L (0-35); ALBUMIN 4.79 g/dL (3.5-5.0); ALKALINE PHOSPHATASE 93.8 U/L (53-141); ASPARTATE AMINO TRANSFERASE 34.3 U/L (14-36); BILIRUBIN,TOTAL 1.28 mg/dL (0.2-1.3); BLOOD UREA NITROGEN 12.1 mg/dL (7-17); CALCIUM 9.58 mg/dL (8.4-10.2); CHLORIDE 104.2 mmol/L (98-107); CREATININE 0.78 mg/dL (0.60-1.30); GLUCOSE 196.5 mg/dL (74-106); MAGNESIUM 1.67 mg/dL (1.6-2.3); POTASSIUM 3.56 mmol/L (3.5-5.1); SODIUM 142.1 mmol/L (134.5-145); TOTAL PROTEIN 7.75 g/dL (6.3-8.2)
[2022-11-22 10:44] LABS: TROPONIN I < 0.012 ng/ml (0.0000-0.120)
[2022-11-22 12:18] LABS: SARS COV-2 RNA RAPID NAAT NEGATIVE (NEGATIVE)
[2022-11-22] MEDS ORDERED: ZOFRAN 4 MG/2 ML IVP PRN (12:48)
[2022-11-22] MEDS ORDERED: MYLANTA SUSP PO PRN (12:48)
[2022-11-22] MEDS ORDERED: TYLENOL PO PRN (12:48)
[2022-11-22 13:48] VITALS: BMI 29.1
[2022-11-22] MEDS ORDERED: HUMULIN R SUBCUT PRN (14:47)
[2022-11-22] MEDS ORDERED: LOPRESSOR IVP STA (14:53)
[2022-11-22] MEDS ORDERED: LOPRESSOR PO ONE (14:53)
[2022-11-22 16:05] LABS: BILIRUBIN,URINE Negative (NEGATIVE); CLARITY,URINE Clear (CLEAR); COLOR,URINE Yellow (YELLOW); GLUCOSE, URINE (UA) Trace (NEGATIVE); KETONES,URINE Negative (NEGATIVE); LEUKOCYTE ESTERASE ,URINE 1+ (NEGATIVE); NITRITE,URINE Negative (NEGATIVE); PROTEIN,URINE Trace (NEGATIVE); URINE, BLOOD Negative (NEGATIVE); UROBILINOGEN,URINE 0.2 (0.2)
[2022-11-22 16:07] LABS: MUCUS,URINE 2+ (NOT PRESENT); URINE RBC, MICROSCOPIC 0-2 (0-2)
--- NOTE | 2022-11-22 18:17 | PCM ---
Date of Service Date Seen by Provider: 11/22/22 Admit Day/Time Admission Date: 11/22/22 Reason for Admission Chief Complaint: NEAR SYNCOPE Hospital Provider Hospital Provider: NAE DENIS, [facility] [place] Primary Care Physician Primary Care Physician: KIT GORMAN MD History of Present Illness History of Present Illness: 72 yo female presented to the ER by EMS from home following a syncopal episode. She reports that she was sitting on the toilet after having a bowel movement and the last she recalls is that she starting feeling as if she was going to pass out and leaned against the wall. States she woke up when ems was at her home. De nies any palpitations, shortness of breath, fever, chest pain. Does report nausea and had one episode of vomiting in the ER. Has pmh of CVA and a. fib. Case Discussed With Case Discussed With: Patient's case was discussed with the ER Physicians, Dr. Garcia. [facility] Medical History Acute sinusitis J01.90 - Acute sinusitis, unspecified (ICD-10) Atherosclerosis I70.90 - Unspecified atherosclerosis (ICD-10) Atherosclerosis of arteries I70.90 - Unspecified atherosclerosis (ICD-10) Atrial fibrillation, permanent I48.21 - Permanent atrial fibrillation (ICD-10) B12 deficiency E53.8 - Deficiency of other specified B group vitamins (ICD-10) Chronic anticoagulation Z79.01 - MCC (current) use of anticoagulants (ICD-10) CVA (cerebral vascular accident) I63.9 - Cerebral infarction, unspecified (ICD-10) Depression F32.A - Depression, unspecified (ICD-10) DM type 2 (diabetes mellitus, type 2) E11.9 - Type 2 diabetes mellitus without complications (ICD-10) Dyslipidemia E78.5 - Hyperlipidemia, unspecified (ICD-10) Fatty liver K76.0 - Fatty (change of) liver, not elsewhere classified (ICD-10) GERD (gastroesophageal reflux disease) K21.9 - Gastro-esophageal reflux disease without esophagitis (ICD-10) Hemiparesis affecting left side as late effect of stroke I69.354 - Hemiplegia and hemiparesis following cerebral infarction affecting left non-dominant side (ICD-10) HTN, goal below 130/80 I10 - Essential (primary) hypertension (ICD-10) IBS (irritable bowel syndrome) K58.9 - Irritable bowel syndrome without diarrhea (ICD-10) LVH (left ventricular hypertrophy) I51.7 - Cardiomegaly (ICD-10) Paroxysmal atrial fibrillation I48.0 - Paroxysmal atrial fibrillation (ICD-10) TIA (transient ischemic attack) G45.9 - Transient cerebral ischemic attack, unspecified (ICD-10) Vestibular dysfunction H83.2X9 - Labyrinthine dysfunction, unspecified ear (ICD-10) Surgical History Cataract H26.9 - Unspecified cataract (ICD-10) History of dilatation and curettage Z98.890 - Other specified postprocedural states (ICD-10) History of tubal ligation Z98.51 - Tubal ligation status (ICD-10) Family History Mother Ovarian cancer FATHER Cerebrovascular accident Diabetes Respiratory disease SISTER Diabetes Atrial fibrillation Kidney disease BROTHER Diabetes Social History Smoking and tobacco status: Never smoker Alcohol intake: never Counseling given: No Substance use type: does not use Special val needs: No Agree to transfusion: Yes Adopted: No Caregiver/support person: No Foster care: No Household members: spouse Housing: house Marital status: M Lives independently: Yes Number of children: 1 service: No intermediate: No Current occupational status: retired Current occupational exposures/hazards: No Pets and animals: No History of recent travel: No Sexually active: No Do you think of yourself as: straight/heterosexual Current gender identity: female Seatbelt use: always Drives intoxicated or rides with intoxicated tanker driver: No Water heater temperature set < 120 degrees: Yes Working smoke detector in home: Yes Fire extinguisher in home: Yes Carbon monoxide detector in home: No Firearms in home: No Allergies Allergies Allergy/AdvReac Type Severity Reaction Status Date / Time jardianc AdvReac Mild yeast Uncoded 10/16/22 10:42 infection Current Medications Home Medications omeprazole magnesium 20 mg tablet,delayed release (Prilosec OTC) 20 mg PO BEDTIME 11/08/13 [History Confirmed 11/22/22 Last Taken 07/05/21 2100] loperamide 2 mg tablet (Anti-Diarrheal (loperamide)) 2 mg PO ONCE PRN Diarrhea 08/28/22 [History Confirmed 11/22/22 Last Taken Unknown] pravastatin 80 mg tablet 80 mg PO QDAY #90 tabs 08/31/22 [Rx Confirmed 11/22/22 Last Taken Unknown] metoprolol tartrate 25 mg tablet 12.5 mg PO BID #30 tabs 09/14/22 [Rx Confirmed 11/22/22 Last Taken Unknown] sertraline 50 mg tablet 50 mg PO DAILY #90 tabs 09/14/22 [Rx Confirmed 11/22/22 Last Taken Unknown] amlodipine 5 mg tablet 5 mg PO QHS 09/22/22 [History Confirmed 11/22/22 Last Taken Unknown] aspirin 81 mg tablet,delayed release 81 mg PO QDAY 09/22/22 [History Confirmed 11/22/22 Last Taken Unknown] metformin 500 mg tablet 500 mg PO BIDWMEAL #60 tabs 10/16/22 [Rx Confirmed 11/22/22 Last Taken Unknown] semaglutide 0.25 mg or 0.5 mg (2 mg/3 mL) subcutaneous pen injector (Ozempic) 0.5 mg subcut QWEEK 10/16/22 [History Confirmed 11/22/22 Last Taken Unknown] apixaban 5 mg tablet (Eliquis) See Rx Instructions .Route .COMPLEX #180 tabs 10/27/22 [Rx Confirmed 11/22/22 Last Taken Unknown] losartan 100 mg-hydrochlorothiazide 12.5 mg tablet See Rx Instructions .Route .COMPLEX #90 tabs 11/05/22 [Rx Confirmed 11/22/22 Last Taken Unknown] buspirone 15 mg tablet See Rx Instructions .Route .COMPLEX #60 tabs 11/09/22 [Rx Confirmed 11/22/22 Last Taken Unknown] potassium chloride 20 mEq tablet,extended release(part/cryst) See Rx Instructions .Route .COMPLEX #60 tabs 11/17/22 [Rx Confirmed 11/22/22 Last Taken Unknown] Home Acetaminophen (Acetaminophen 325 Mg Tablet) 650 mg PO Q4H PRN PRN Reason: Mild Pain Al Hydroxide/Mg Hydroxide (Mag Hydrox/Al Hydrox/Simeth 30 Ml Cup) 30 ml PO BID PRN PRN Reason: Heartburn Amlodipine Besylate (Amlodipine Besylate 5 Mg Tablet) 5 mg PO 2100 [place] Apixaban (Apixaban 5 Mg Tab) 5 mg PO BID [facility] Aspirin (Aspirin 81 Mg Tablet.Dr) 81 mg PO DAILY [place] Buspirone HCl (Buspirone Hcl 10 Mg Tablet) 10 mg PO BID [facility] Sodium Chloride (Sodium Chloride) 1,000 mls @ 100 mls/hr IV .Q10H STA Stop: 11/22/22 19:45 Last Admin: 11/22/22 10:19 Dose: 100 mls/hr Insulin Human Regular (Insulin Regular, Human 100 Unit/Ml (3ml) Vial) 0 unit SUBCUT PRN PRN; Protocol PRN Reason: Hyperglycemia Last Admin: 11/22/22 17:06 Dose: 3 unit Non-Formulary Medication (Semaglutide [Ozempic]) 0.5 mg SUBCUT QWEEK [facility] Ondansetron HCl (Ondansetron Hcl/Pf 4 Mg/2 Ml Sdv) 4 mg IVP Q8H PRN PRN Reason: Nausea / Vomiting Pravastatin Sodium (Pravastatin Sodium 40 Mg Tablet) 80 mg PO DAILY [facility] Sertraline HCl (Sertraline Hcl 50 Mg Tablet) 50 mg PO DAILY [facility] Sodium Chloride (0.9% Sodium Chloride 10 Ml Disp.Syrin) 1 syr IVF PRN PRN PRN Reason: To flush IV Discontinued Medications Metoprolol Tartrate (Metoprolol Tartrate 25 Mg Tablet) 12.5 mg PO ONCE ONE Stop: 11/22/22 14:54 Last Admin: 11/22/22 15:35 Dose: Not Given Metoprolol Tartrate (Metoprolol Tartrate 5 Mg/5 Ml Vial) 2.5 mg IVP ONCE STA Stop: 11/22/22 14:54 Last Admin: 11/22/22 15:15 Dose: 2.5 mg Ondansetron HCl (Ondansetron Hcl/Pf 4 Mg/2 Ml Sdv) 4 mg IVP ONCE STA Stop: 11/22/22 09:47 Last Admin: 11/22/22 10:19 Dose: 4 mg Review of Systems Constitutional: Reports No symptoms Head: Reports Normocephalic and Atraumatic Eyes: Reports No symptoms Ears: Reports No symptoms Nose: Reports No symptoms Mouth: Reports No symptoms Throat: Reports No symptoms Cardiovascular: Reports Syncope Respiratory: Reports No symptoms Gastrointestinal: Reports Nausea and Vomiting Genitourinary: Reports No Symptoms Musculoskeletal: Reports No symptoms Endocrine: Reports No symptoms Hematology: Reports No symptoms Immunology: Reports No symptoms Neurological: Reports No symptoms and Syncope Psychiatric: Reports No symptoms Physical examination Most Recent Vital Signs: Most Recent Vital Signs Temperature 97 F L 11/22/22 13:36 Temperature Source Temporal Artery Scan 11/22/22 13:36 Temperature Source Infrared 11/22/22 09:38 Pulse Rate 98 11/22/22 13:36 Respiratory Rate 16 11/22/22 13:36 Blood Pressure 118/73 11/22/22 15:53 Blood Pressure Left Arm 132/84 11/22/22 13:36 Blood Pressure Location Left Arm 11/22/22 15:53 Blood Pressure Position Standing 11/22/22 15:53 O2 Sat by Pulse Oximetry 98 11/22/22 13:36 Oxygen Delivery Method Room Air 11/22/22 13:36 Height 5 ft 8 in 11/22/22 13:36 Weight 191 lb 9 oz 11/22/22 13:36 Telemetry Type Remote Telemetry 11/22/22 14:04 Telemetry Monitoring Started 11/22/22 14:04 Irregular Telemetry Rate (Approximate) 90-100 BPM 11/22/22 14:04 Telemetry Heart Rate 56 L 07/08/21 07:00 Telemetry SPO2 97 08/13/14 13:00 EKG QRS Interval 0.06 11/22/22 14:04 Telemetry Strip Reading afib 11/22/22 14:04 Appearance: Positive Well-appearing, Well-nourished, No Apparent Distress and Alert and Oriented x3 Skin: Positive [place], Warm, Good Turgor and Good Color HEENT: Positive Normocephalic, Atraumatic and PERRLA Neck: Positive Supple, Non-Enlarged Thyroid and Midline Trachea Chest/Lungs: Positive Symmetrical With Equal Breath Sounds, Clear to Auscultation Bilaterally and Good Air Movement all 4 Lung [place] Heart: Positive Pulses Normal, Irregular Rhythm, No S3 Auscultated and No S4 Auscultated GI/: Positive Soft, Nontender, Bowel Sounds Normal, No Distention and No O rganomegaly Musculoskeletal: Positive Not Examined Extremities: Positive Intact Peripheral Pulses, Stable Joints Without Laxity and Good ROM in All Joints Neurological: Positive Sensation Intact, Motor intact, Reflexes Intact, Alert, Oriented and Muscle Strength 5/5 in Upper and Lower Extremities Bilaterally Psychiatric: Positive Oriented x4, Appropriate Mood, Appropriate Affect, Intact Memory, Good Short-Term Recall, Good Long-Term Recall, Normal Judgement and Normal Insight Labs This Visit Labs This Visit: Labs This Visit 11/22/22 11/22/22 11/22/22 10:16 11:44 13:00 WBC 7.87 RBC 4.41 Hgb 13.6 Hct 40.1 MCV 90.9 MCH 30.8 MCHC 33.9 RDW Coeff of Catarina 11.9 Plt Count 196 Immature Gran % (Auto) 0.5 Neut % (Auto) 69.4 Lymph % (Auto) 20.7 [place] % (Auto) 8.0 Eos % (Auto) 1.1 Baso % (Auto) 0.3 Neut # (Auto) 5.5 Lymph # (Auto) 1.6 [place] # (Auto) 0.6 Eos # (Auto) 0.1 Baso # (Auto) 0.0 Immature Gran # (Auto) 0.0 PT 10.6 INR 1.02 Sodium 142.1 Potassium 3.56 Chloride 104.2 Carbon Dioxide 28.0 Anion Gap 13.46 BUN 12.1 Creatinine 0.78 Estimated GFR (MDRD) 72.00 BUN/Creatinine Ratio 15.51 Glucose 196.5 H Calcium 9.58 Magnesium 1.67 Total Bilirubin 1.28 AST 34.3 ALT 26.3 Alkaline Phosphatase 93.8 Troponin I < 0.012 < 0.012 Total Protein 7.75 Albumin 4.79 Globulin 2.96 Albumin/Globulin Ratio 1.61 Urine Color Urine Clarity Urine pH Ur Specific [place] Urine Protein Urine Glucose (UA) Urine Ketones Urine Blood Urine Nitrite Urine Bilirubin Urine Urobilinogen Ur Leukocyte Esterase Urine Microscopic RBC Urine Microscopic WBC Ur Squamous Epith Cells Hyaline Casts Urine Mucus SARS CoV-2 RNA Rapid [facility] Negative 11/22/22 15:55 WBC RBC Hgb Hct MCV MCH MCHC RDW Coeff of Catarina Plt Count Immature Gran % (Auto) Neut % (Auto) Lymph % (Auto) [place] % (Auto) Eos % (Auto) Baso % (Auto) Neut # (Auto) Lymph # (Auto) [place] # (Auto) Eos # (Auto) Baso # (Auto) Immature Gran # (Auto) PT INR Sodium Potassium Chloride Carbon Dioxide Anion Gap BUN Creatinine Estimated GFR (MDRD) BUN/Creatinine Ratio Glucose Calcium Magnesium Total Bilirubin AST ALT Alkaline Phosphatase Troponin I < 0.012 Total Protein Albumin Globulin Albumin/Globulin Ratio Urine Color Yellow Urine Clarity Clear Urine pH 7.0 Ur Specific [place] 1.015 Urine Protein Trace H Urine Glucose (UA) Trace H Urine Ketones Negative Urine Blood Negative Urine Nitrite Negative Urine Bilirubin Negative Urine Urobilinogen 0.2 Ur Leukocyte Esterase 1+ H Urine Microscopic RBC 0-2 Urine Microscopic WBC 10-20 Ur Squamous Epith Cells 5-10 Hyaline Casts 2-5 Urine Mucus 2+ SARS CoV-2 RNA Rapid [facility] Imaging Imagining: Procedure(s): CHEST, 1V AP ONLY Report Number(s): [id number] Accession Number(s): [id number] cc: VINOD GARCIA MD; KIT GORMAN MD EXAM: SINGLE VIEW CHEST. HISTORY: Dyspnea COMPARISON: 01/29/2021 FINDINGS: The cardiomediastinal silhouette appears enlarged. Calcified plaques overlie the aorta. Pulmonary vascularity is within normal limits. No focal airspace opacity or pleural effusion is seen. Right basilar calcified granuloma is again seen. The bones appear diffusely demineralized. IMPRESSION: No acute cardiopulmonary findings. Cardiomegaly. Ordering Physician: VINOD GARCIA MD Procedure(s): CT HEAD W/O CONTRAST Report Number(s): [id number] Accession Number(s): [id number] cc: VINOD GARCIA MD; KIT GORMAN MD EXAM: CT OF THE HEAD WITHOUT CONTRAST. HISTORY: Near syncope. COMPARISON: 09/16/2022 TECHNIQUE: Contiguous axial images at 5 mm intervals were obtained from the base of the skull to the vertex of the calvarium. No contrast was given. FINDINGS: Extra-axial spaces: The CSF contiaing spaces are diffusely enlarged consistent with atrophy.There are no extraaxial fluid collections. Hemorrhage: None Cerebral Parenchyma: There are hypodensities in the periventricular white matter and deep white matter. These findings are non-specific but can be seen with chronic ischemic changes from small vessel disease.Holt-white differentiation is normal. Bilateral lacunar infarcts are noted. Cerebellum: Mild atrophic changes.. Masses/Mass effect: None. There is no midline shift. Vasculature: Calcifications are seen in the carotid and vertebral arteries. Osseus Structures: Normal. Soft tissues/Sinuses: Normal. IMPRESSION: 1. Chronic age related changes. Bilateral lacunar infarcts. 2. No acute intracranial hemorrhage. EKG Interpretation EKG Interpretation: No acute changes per Dr. Garcia Review Statement Review Statement: I have independently reviewed and interpreted the labs/EKGs/imaging that were ordered by the ER provider. I have reviewed all outside records that are available currently in our EMR including imaging/notes/labs from previous visits. Plan Plan: 1. Syncope - serial troponins negative, serial EKGs, checking echo and US carotids tomorrow, telemetry, VSQ4H, orthostatic vitals Q8H 2. Atrial Fibrillation - rate uncontrolled at this time, patient has not taken home medications today, received 1 dose of metoprolol IV and returned to NSR rate in 80s, continuing home medications 3. Diabetes Mellitus, Type 2 - hold oral medications, accuchecks QID with SSI, ADA diet 4. Hypertension - chronic, stable, continue home medications 5. Hyperlipidemia - chronic, continue home medications DVT Prophylaxis: Sung Time Spent: Greater than 80 minutes spent with patient, 50% of the time spent with this patient was devoted to counseling and coordination of care. [facility] Plannin minutes spent discussing advance care planning. Disposition: Admit to: Med/Surg Observation Discussed Plan of Care with Dr. Gorman. Medications Medication Orders: Medications Ordered Category Date Time Status 0.9 % Sodium Chloride [Saline Flush] MEDS 11/22/22 09:46 Active 1 syr IVF PRN PRN Acetaminophen [Tylenol] MEDS 11/22/22 12:48 Active 650 mg PO Q4H PRN Amlodipine Besylate [Norvasc] MEDS 11/22/22 21:00 Active 5 mg PO 2100 Apixaban [Eliquis] MEDS 11/22/22 21:00 Active 5 mg PO BID Aspirin [Aspirin EC] MEDS 11/23/22 09:00 Active 81 mg PO DAILY Buspirone HCl [Buspar] MEDS 11/22/22 21:00 Active 10 mg PO BID Insulin Regular, Human [Humulin R] MEDS 11/22/22 14:47 Active See Protocol SUBCUT PRN PRN Mag Hydrox/Al Hydrox/Simeth [Mylanta Susp] MEDS 11/22/22 12:48 Active 30 ml PO BID PRN Ondansetron HCl/Pf [Zofran 4 mg/2 ml] MEDS 11/22/22 12:48 Active 4 mg IVP Q8H PRN Pravastatin Sodium [Pravachol] MEDS 11/23/22 09:00 Active 80 mg PO DAILY Sertraline HCl [Zoloft] MEDS 11/23/22 09:00 Active 50 mg PO DAILY Sodium Chloride 0.9% [Sodium Chloride] 1,000 ml MEDS 11/22/22 09:46 Active IV 100 mls/hr semaglutide [Ozempic] MEDS 11/23/22 15:00 Pending 0.5 mg SUBCUT QWEEK
[2022-11-22] MEDS: ELIQUIS PO SCH (20:33)
[2022-11-22] MEDS: BUSPAR PO SCH (20:33)
[2022-11-22] MEDS ORDERED: NORVASC PO SCH (21:00)
[2022-11-23 05:05] LABS: BASOPHILS # (AUTO) 0.1 K/uL (0-0.2); BASOPHILS % (AUTO) 0.6 % (0.0-3.0); EOSINOPHILS # (AUTO) 0.1 K/ul (0.0-0.7); EOSINOPHILS % (AUTO) 1.3 % (0.0-7.0); HEMATOCRIT 34.6 % (37.0-47.0); HEMOGLOBIN 11.7 g/dl (12.0-16.0); IMMATURE GRANULOCYTE % (AUTO) 0.2 % (0.0-5.0); LYMPHOCYTES # (AUTO) 2.6 K/uL (0.60-3.4); LYMPHOCYTES % (AUTO) 30.9 (10.0-50.0); MEAN CORPUSCULAR HEMOGLOBIN 31.3 pg (27.0-31.0); MEAN CORPUSCULAR HGB CONC 33.8 (31.8-35.4); MEAN CORPUSCULAR VOLUME 92.5 fl (81.0-99.0); MONOCYTES # (AUTO) 0.8 K/uL (0.4-2.0); MONOCYTES % (AUTO) 9.3 (0-10); NEUTROPHILS # (AUTO) 4.9 K/ul (2.0-6.9); NEUTROPHILS % (AUTO) 57.7 % (42.2-75.2); PLATELET COUNT 168 10^3/uL (140-440); RDW COEFFICIENT OF VARIATION 12.2 % (11.6-14.8); RED BLOOD COUNT 3.74 10^6/ul (4.20-5.40); WHITE BLOOD COUNT 8.53 K/ul (4.6-10.2)
[2022-11-23 05:18] LABS: ALANINE AMINOTRANSFERASE 19.9 U/L (0-35); ALBUMIN 3.86 g/dL (3.5-5.0); ALKALINE PHOSPHATASE 71.6 U/L (53-141); ASPARTATE AMINO TRANSFERASE 26.7 U/L (14-36); BILIRUBIN,TOTAL 1.08 mg/dL (0.2-1.3); BLOOD UREA NITROGEN 11.3 mg/dL (7-17); CALCIUM 8.65 mg/dL (8.4-10.2); CARBON DIOXIDE 32.9 mmol/L (22-30.0); CHLORIDE 105.6 mmol/L (98-107); CREATININE 0.65 mg/dL (0.60-1.30); GLUCOSE 125.3 mg/dL (74-106); POTASSIUM 3.57 mmol/L (3.5-5.1); TOTAL PROTEIN 6.38 g/dL (6.3-8.2)
[2022-11-23] MEDS: ELIQUIS PO SCH (08:59)
[2022-11-23] MEDS: BUSPAR PO SCH (08:59)
[2022-11-23] MEDS ORDERED: PRAVACHOL PO SCH (09:00)
[2022-11-23] MEDS ORDERED: ASPIRIN EC PO SCH (09:00)
[2022-11-23] MEDS ORDERED: ZOLOFT PO SCH (09:00)
[2022-11-23 10:04] VITALS: BP 125/61; RESP 14; TEMP 97.6
--- NOTE | 2022-11-23 10:43 | DCSUM ---
Admission Date Admission Date: 11/22/22 Discharge Date Discharge Date: 11/23/22 Admission Diagnosis Admission Diagnosis: Syncope Discharge Diagnosis Discharge Diagnosis: Syncope Paroxysmal A fib, stable, chronic History of CVA, stable, chronic GERD, stable, chronic DMT2, stable, chronic Hypertension, stable, chronic Hyperlipidemia, stable, chronic B12 Deficiency, stable, chronic Hospital Provider Hospital Provider: Yessenia Suresh PA-C, [facility] Primary Care Physician Primary Care Physician: KIT PATRICK MD Summary of History and Physical Summary of History and Physical: 72 yo female presented to the ER by EMS from home following a syncopal episode. She reports that she was sitting on the toilet after having a bowel movement and the last she recalls is that she starting feeling as if she was going to pass out and leaned against the wall. States she woke up when ems was at her home. Denies any palpitations, shortness of breath, fever, chest pain. Does report nausea and had one episode of vomiting in the ER. Has pmh of CVA and a. fib. Hospital Course Subjective: Patient's orthostats were normal. No events on telemetry. UA showed 1+ leuks but patient denies symptoms and prelim showing mixed growth. She had no dizziness or near syncopal episodes while admitted. Discussed it could be due to a vasovagal reaction after her BM. She feels maybe her glucose was too high at the time. She reports syncope 3-4 years ago requiring hospitalization, that was associated with using the rest room as well. Echo performed without acute abnormalities. LVEF 66%. Carotid showed no significant stenosis. She feels comfortable with discharge home. Discussed holter monitor but patient prefers to not do it as she recently had a holter x2 weeks following her CVA recently.. She understands the risks of missing an arrhythmia other than her diagnosed a fib. She will f/u with her pcp within one week. Return with worsening symptoms. Patient agrees to plan of care. Appearance: Pleasant, No Apparent Distress, Alert and Well-nourished HEENT: MMM CVS: No Murmur, No Rubs and No Gallop Abdomen: Soft, Non-Tender and No Distention Respiratory: No Dyspnea Extremities: No Edema Vital Signs: Most Recent Vital Signs Temperature 97.6 F 11/23/22 10:00 Temperature Source Temporal Artery Scan 11/23/22 10:00 Temperature Source Infrared 11/22/22 09:38 Pulse Rate 66 11/23/22 10:00 Respiratory Rate 14 11/23/22 10:00 Blood Pressure 125/61 11/23/22 10:00 Blood Pressure Mean 82 11/23/22 10:00 Blood Pressure Left Arm 132/84 11/22/22 13:36 Blood Pressure Location Left Arm 11/23/22 10:00 Blood Pressure Position Supine 11/23/22 10:00 O2 Sat by Pulse Oximetry 98 11/23/22 10:00 Oxygen Delivery Method Room Air 11/23/22 10:00 Height 5 ft 8 in 11/22/22 13:36 Weight 191 lb 9 oz 11/22/22 13:36 Telemetry Type Remote Telemetry 11/23/22 07:00 Telemetry Monitoring Continues 11/23/22 07:00 Irregular Telemetry Rate (Approximate) 60-70 BPM 11/23/22 01:00 Telemetry Heart Rate 56 L 07/08/21 07:00 Telemetry SPO2 97 08/13/14 13:00 EKG TN Interval 0.23 H 11/23/22 07:00 EKG QRS Interval 0.03 L 11/23/22 07:00 Telemetry Strip Reading SR 11/23/22 07:00 Imaging: Procedure(s): CHEST, 1V AP ONLY Report Number(s): [id number] Accession Number(s): [id number] cc: VINOD SARKAR MD; KIT PATRICK MD EXAM: SINGLE VIEW CHEST. HISTORY: Dyspnea COMPARISON: 01/29/2021 FINDINGS: The cardiomediastinal silhouette appears enlarged. Calcified plaques overlie the aorta. Pulmonary vascularity is within normal limits. No focal airspace opacity or pleural effusion is seen. Right basilar calcified granuloma is again seen. The bones appear diffusely demineralized. IMPRESSION: No acute cardiopulmonary findings. Cardiomegaly. Procedure(s): CT HEAD W/O CONTRAST Report Number(s): [id number] Accession Number(s): [id number] cc: VINOD SARKAR MD; KIT PATRICK MD EXAM: CT OF THE HEAD WITHOUT CONTRAST. HISTORY: Near syncope. COMPARISON: 09/16/2022 TECHNIQUE: Contiguous axial images at 5 mm intervals were obtained from the base of the skull to the vertex of the calvarium. No contrast was given. FINDINGS: Extra-axial spaces: The CSF contiaing spaces are diffusely enlarged consistent with atrophy.There are no extraaxial fluid collections. Hemorrhage: None Cerebral Parenchyma: There are hypodensities in the periventricular white matter and deep white matter. These findings are non-specific but can be seen with chronic ischemic changes from small vessel disease.Holt-white differentiation is normal. Bilateral lacunar infarcts are noted. Cerebellum: Mild atrophic changes.. Masses/Mass effect: None. There is no midline shift. Vasculature: Calcifications are seen in the carotid and vertebral arteries. Osseus Structures: Normal. Soft tissues/Sinuses: Normal. IMPRESSION: 1. Chronic age related changes. Bilateral lacunar infarcts. 2. No acute intracranial hemorrhage. EXAM: ULTRASOUND BILATERAL CAROTID DUPLEX HISTORY: Syncope COMPARISON: None TECHNIQUE: Sonographic and color Doppler evaluation of the carotids were performed. FINDINGS: The right carotid is patent in appearance with minimal atherosclerotic plaque visualized. The right ICA peak systolic velocity measures 100 cm/sec which is normal. The ICA / CCA peak systolic velocity ratio is 1.0 and ICA end-diastolic velocity is 23 cm/sec. The left carotid is the patent in appearance with minimal atherosclerotic plaque visualized. The left ICA peak systolic velocity measures 94 cm/sec which is normal. The left ICA / CCA peak systolic velocity ratio is 1.1 and ICA end-diastolic velocity is 24 cm/sec. Vertebral arteries demonstrate antegrade flow bilaterally. Color Doppler flow and wave spectral evaluation are normal. IMPRESSION: Mild scattered atherosclerotic disease with no evidence of stenosis. ECHO: INTERPRETATION: 1.LEFT VENTRICLE HYPERTROPHY WITH ENLARGED LEFT ATRIAL CAVITY 2. NORMAL VALVES 3. NORMAL LEFT VENTRICLE CAVITY AND LEFT VENTRICLE CONTRACTILITY 4. MILDLY DILATED AORTIC ROOT UNCHANGED 06/2021 LVEF 66% Lab Results Last 24 Hours: 11/23/22 11/22/22 11/22/22 05:00 15:55 13:00 WBC 8.53 RBC 3.74 L Hgb 11.7 L Hct 34.6 L MCV 92.5 MCH 31.3 H MCHC 33.8 RDW Coeff of Catarina 12.2 Plt Count 168 Immature Gran % (Auto) 0.2 Neut % (Auto) 57.7 Lymph % (Auto) 30.9 [place] % (Auto) 9.3 Eos % (Auto) 1.3 Baso % (Auto) 0.6 Neut # (Auto) 4.9 Lymph # (Auto) 2.6 [place] # (Auto) 0.8 Eos # (Auto) 0.1 Baso # (Auto) 0.1 Immature Gran # (Auto) 0.0 Sodium 140.0 Potassium 3.57 Chloride 105.6 Carbon Dioxide 32.9 H Anion Gap 5.07 BUN 11.3 Creatinine 0.65 Estimated GFR (MDRD) 89.00 BUN/Creatinine Ratio 17.38 Glucose 125.3 H D Calcium 8.65 Total Bilirubin 1.08 AST 26.7 ALT 19.9 Alkaline Phosphatase 71.6 Troponin I < 0.012 < 0.012 Total Protein 6.38 Albumin 3.86 Globulin 2.52 Albumin/Globulin Ratio 1.53 Urine Color Yellow Urine Clarity Clear Urine pH 7.0 Ur Specific [place] 1.015 Urine Protein Trace H Urine Glucose (UA) Trace H Urine Ketones Negative Urine Blood Negative Urine Nitrite Negative Urine Bilirubin Negative Urine Urobilinogen 0.2 Ur Leukocyte Esterase 1+ H Urine Microscopic RBC 0-2 Urine Microscopic WBC 10-20 Ur Squamous Epith Cells 5-10 Hyaline Casts 2-5 Urine Mucus 2+ SARS CoV-2 RNA Rapid CHAI 11/22/22 11/22/22 11:44 10:16 WBC RBC Hgb Hct MCV MCH MCHC RDW Coeff of Catarina Plt Count Immature Gran % (Auto) Neut % (Auto) Lymph % (Auto) [place] % (Auto) Eos % (Auto) Baso % (Auto) Neut # (Auto) Lymph # (Auto) [place] # (Auto) Eos # (Auto) Baso # (Auto) Immature Gran # (Auto) Sodium Potassium Chloride Carbon Dioxide Anion Gap BUN Creatinine Estimated GFR (MDRD) BUN/Creatinine Ratio Glucose Calcium Total Bilirubin AST ALT Alkaline Phosphatase Troponin I < 0.012 Total Protein Albumin Globulin Albumin/Globulin Ratio Urine Color Urine Clarity Urine pH Ur Specific [place] Urine Protein Urine Glucose (UA) Urine Ketones Urine Blood Urine Nitrite Urine Bilirubin Urine Urobilinogen Ur Leukocyte Esterase Urine Microscopic RBC Urine Microscopic WBC Ur Squamous Epith Cells Hyaline Casts Urine Mucus SARS CoV-2 RNA Rapid CHAI Negative Discharge Instructions Discharge Planning: DISCHARGE TO HOME F/U WITH PCP WITHIN 1 WEEK DX: SYNCOPE DIET: DIABETIC, HEART HEALTHY ACTIVITY: TOLERATED, FALL PRECAUTIONS NO MEDICATION CHANGES Discharge Planning > 70 minutes Medications Given This Visit: Medications Generic Name Dose Route Start Last Admin Trade Name Freq PRN Reason Stop Dose Admin Acetaminophen 650 mg 11/22/22 12:48 Acetaminophen 325 Mg Tablet PO Q4H PRN Mild Pain Al Hydroxide/Mg Hydroxide 30 ml 11/22/22 12:48 Mag Hydrox/Al Hydrox/Simeth 30 Ml Cup PO BID PRN Heartburn Amlodipine Besylate 5 mg 11/22/22 21:00 11/22/22 20:32 Amlodipine Besylate 5 Mg Tablet PO 5 mg 2100 BARTOLO Administration Apixaban 5 mg 11/22/22 21:00 11/23/22 08:59 Apixaban 5 Mg Tab PO 5 mg BID BARTOLO Administration Aspirin 81 mg 11/23/22 09:00 11/23/22 08:58 Aspirin 81 Mg Tablet.Dr PO 81 mg DAILY BARTOLO Administration Buspirone HCl 10 mg 11/22/22 21:00 11/23/22 08:59 Buspirone Hcl 10 Mg Tablet PO 10 mg BID BARTOLO Administration Insulin Human Regular 0 unit 11/22/22 14:47 11/22/22 17:06 Insulin Regular, Human 100 Unit/Ml (3ml) Vial SUBCUT 3 unit PRN PRN Administration Hyperglycemia Protocol Non-Formulary Medication 0.5 mg 11/23/22 15:00 Semaglutide [Ozempic] SUBCUT QWEEK BARTOLO Ondansetron HCl 4 mg 11/22/22 12:48 Ondansetron Hcl/Pf 4 Mg/2 Ml Sdv IVP Q8H PRN Nausea / Vomiting Pravastatin Sodium 80 mg 11/23/22 09:00 11/23/22 08:58 Pravastatin Sodium 40 Mg Tablet PO 80 mg DAILY BARTOLO Administration Sertraline HCl 50 mg 11/23/22 09:00 11/23/22 08:58 Sertraline Hcl 50 Mg Tablet PO 50 mg DAILY BARTOLO Administration Sodium Chloride 1 syr 11/22/22 09:46 0.9% Sodium Chloride 10 Ml Disp.Syrin IVF PRN PRN To flush IV Medications Given This Visit: Medications at Discharge (Home Meds & RX) omeprazole magnesium 20 mg tablet,delayed release (Prilosec OTC) 20 mg PO BEDTIME 11/08/13 loperamide 2 mg tablet (Anti-Diarrheal (loperamide)) 2 mg PO ONCE PRN Diarrhea 08/28/22 pravastatin 80 mg tablet 80 mg PO QDAY #90 tabs 08/31/22 metoprolol tartrate 25 mg tablet 12.5 mg PO BID #30 tabs 09/14/22 sertraline 50 mg tablet 50 mg PO DAILY #90 tabs 09/14/22 amlodipine 5 mg tablet 5 mg PO QHS 09/22/22 aspirin 81 mg tablet,delayed release 81 mg PO QDAY 09/22/22 semaglutide 0.25 mg or 0.5 mg (2 mg/3 mL) subcutaneous pen injector (Ozempic) 0.5 mg subcut QWEEK 10/16/22 apixaban 5 mg tablet (Eliquis) See Rx Instructions .Route .COMPLEX #180 tabs 10/27/22 losartan 100 mg-hydrochlorothiazide 12.5 mg tablet See Rx Instructions .Route .COMPLEX #90 tabs 11/05/22 buspirone 15 mg tablet See Rx Instructions .Route .COMPLEX #60 tabs 11/09/22 potassium chloride 20 mEq tablet,extended release(part/cryst) See Rx Instructions .Route .COMPLEX #60 tabs 11/17/22 metformin 500 mg tablet 500 mg PO BIDWMEAL #60 tabs 11/23/22 Discharge Plan Discharge Discharge Orders: Discharge Patient (ONCE); Ordered 11/23/22 Ordered By: YESSENIA SURESH Activity Restrictions/Additional Instructions: DISCHARGE TO HOME F/U WITH PCP WITHIN 1 WEEK DX: SYNCOPE DIET: DIABETIC, HEART HEALTHY ACTIVITY: TOLERATED, FALL PRECAUTIONS NO MEDICATION CHANGES; RESUME HOME MEDICATIONS Instructions: Syncope (GEN) Patient Disposition: HOME SELF-CARE Prescriptions: Continued pravastatin 80 mg tablet 80 mg PO QDAY Qty: 90 1RF sertraline 50 mg tablet 50 mg PO DAILY Qty: 90 0RF metoprolol tartrate 25 mg tablet 12.5 mg PO BID Qty: 30 2RF Eliquis 5 mg tablet See Rx Instructions .ROUTE .COMPLEX Qty: 180 1RF Dose Instruction: TAKE ONE TABLET TWICE DAILY Rx Instructions: TAKE ONE TABLET TWICE DAILY losartan-hydrochlorothiazide 100-12.5 mg tablet See Rx Instructions .ROUTE .COMPLEX Qty: 90 1RF Dose Instruction: TAKE ONE TABLET DAILY Rx Instructions: TAKE ONE TABLET DAILY buspirone 15 mg tablet See Rx Instructions .ROUTE .COMPLEX Qty: 60 1RF Dose Instruction: TAKE ONE TABLET TWICE DAILY Rx Instructions: TAKE ONE TABLET TWICE DAILY potassium chloride 20 mEq tablet,ER particles/crystals See Rx Instructions .ROUTE .COMPLEX Qty: 60 0RF Dose Instruction: TAKE ONE TABLET TWICE DAILY Rx Instructions: TAKE ONE TABLET TWICE DAILY omeprazole magnesium [Prilosec OTC] 20 MG tablet,delayed release (DR/EC) 20 mg PO BEDTIME metformin 500 mg tablet 500 mg PO BIDWMEAL Qty: 60 3RF loperamide [Anti-Diarrheal (loperamide)] 2 mg tablet 2 mg PO ONCE PRN (Reason: Diarrhea) aspirin 81 mg tablet,delayed release (DR/EC) 81 mg PO QDAY amlodipine 5 mg tablet 5 mg PO QHS Ozempic 0.25 mg or 0.5 mg (2 mg/3 mL) pen injector 0.5 mg subcut QWEEK Rx Instructions: for 4 weeks Did you review [place] [employer] for ALL controlled substances?: Not Applicable Discussed opioids are addictive and Narcan is available by prescription or from pharmacy.: No Condition: Good
--- NOTE | 2022-11-23 11:57 | US ---
EXAM: ULTRASOUND BILATERAL CAROTID DUPLEX HISTORY: Syncope COMPARISON: None TECHNIQUE: Sonographic and color Doppler evaluation of the carotids were performed. FINDINGS: The right carotid is patent in appearance with minimal atherosclerotic plaque visualized. The right ICA peak systolic velocity measures 100 cm/sec which is normal. The ICA / CCA peak systolic velocity ratio is 1.0 and ICA end-diastolic velocity is 23 cm/sec. The left carotid is the patent in appearance with minimal atherosclerotic plaque visualized. The left ICA peak systolic velocity measures 94 cm/sec which is normal. The left ICA / CCA peak systolic velocity ratio is 1.1 and ICA end-diastolic velocity is 24 cm/sec. Vertebral arteries demonstrate antegrade flow bilaterally. Color Doppler flow and wave spectral evaluation are normal. IMPRESSION: Mild scattered atherosclerotic disease with no evidence of stenosis.
--- NOTE | 2022-11-23 12:23 | ECHO2D ---
Date of Exam: 11/23/2022 Ordering Physician: DR. KIT PATRICK Room #: [id number] Reason for Echo: NEAR SYNCOPE M-Mode Normal Adult Results LV Dimensions Normal Adult Results AoV Opening excursions >1.6 >1.6 LVEDD-base- 3.5-5.8 5.0 Ao root dimensions 2.0-3.7 4.0 LVESD-base- 3.1-4.6 L. Atrium dimensions 1.9-3.8 5.4 Post. Wall thickness 0.8-1.1 1.3 IV septum (thickness) 0.7-1.2 1.4 Post. Wall excursion 0.72-1.3 NORMAL Septal motion NORMAL Systolic motion R. Ventricular cavity 1.5-2.0 NORMAL LVEF 60% 66% Paradoxical septal wall motion NORMAL 2-D : 2-D M Mode Echocardiogram was performed using apical four chamber and left parasternal long and short axis views. Mitral, tricuspid and aortic valves appear to be normal. Contractility of the left ventricle seems to be normal, so is the cavity size. ENLARGED LEFT ATRIAL CAVITY SIZE. Aortic root appears to be normal. There is no pericardial effusion. There is no thrombus noted in the left ventricle or left atrial cavity. M-MODE: MV: NORMAL AV: NORMAL TV: NORMAL PV: CHAMBER SIZE: ENLARGED LEFT ATRIAL CAVITY WALL MOTION: NORMAL PERICARDIUM: NORMAL INTERPRETATION: 1. LEFT VENTRICLE HYPERTROPHY WITH ENLARGED LEFT ATRIAL CAVITY 2. NORMAL VALVES 3. NORMAL LEFT VENTRICLE CAVITY AND LEFT VENTRICLE CONTRACTILITY 4. MILDLY DILATED AORTIC ROOT UNCHANGED 06/2021 [facility]
[2022-11-23] MEDS ORDERED: NON-FORMULARY MEDICATION (Semaglutide [Ozempic] 0.25 mg or 0.5 mg (2 mg/3 mL) pen injector SUBCUT SCH (15:00)
== END 2022-11-23 14:15 | disposition home or self-care (01) ==
LOC: ED 09:34 → MEDSURG A 09:34
PROVIDERS: ADMIT Hospitalist; ATTEND Physician Assistant
DX: Z79.899 Other long term (current) drug therapy; E78.5 Hyperlipidemia, unspecified; E53.8 Deficiency of other specified B group vitamins; R55 Syncope and collapse; G45.9 Transient cerebral ischemic attack, unspecified; K21.9 Gastro-esophageal reflux disease without esophagitis; Z79.82 Long term (current) use of aspirin; I70.90 Unspecified atherosclerosis; Z51.81 Encounter for therapeutic drug level monitoring; I69.354 Hemiplegia and hemiparesis following cerebral infarction affecting left non-dominant side; H83.2X9 Labyrinthine dysfunction, unspecified ear; K58.9 Irritable bowel syndrome, unspecified; Z79.01 Long term (current) use of anticoagulants; I51.7 Cardiomegaly; K76.0 Fatty (change of) liver, not elsewhere classified; I10 Essential (primary) hypertension; F32.A Depression, unspecified; I48.21 Permanent atrial fibrillation; Z79.84 Long term (current) use of oral hypoglycemic drugs; E11.9 Type 2 diabetes mellitus without complications; I48.0 Paroxysmal atrial fibrillation